=== PATIENT | male | born 1945 | race Caucasian/White ===

== ENCOUNTER 2018-10-10 21:54 | Inpatient (IN) ==
[2018-10-10 22:18] LABS: Basophils # 0.1 K/mm3 (0-0.2); Basophils % 0.4 % (0.1-2.0); Eosinophils # 0.1 K/mm3 (0.0-0.4); Eosinophils % 0.6 % (0.1-12.0); Hematocrit 46.7 % (42.0-52.0); Hemoglobin 15.2 g/dL (14.1-18.0); Lymphocytes # 0.5 K/mm3 (0.7-4.5); Lymphocytes % 2.8 % (10-50); Mean Corpuscular HGB Conc 32.6 g/dL (31.8-35.4); Mean Corpuscular Hemoglobin 31.3 pg (27.0-31.2); Mean Corpuscular Volume 96.1 fl (80-94); Mean Platelet Volume 7.7 fl (7.4-10.4); Monocytes # 0.6 K/mm3 (0.1-1.0); Monocytes % 3.1 % (1.7-9.3); Neutrophils # 16.6 K/mm3 (1.8-7.8); Neutrophils % 93.2 % (37.0-80.0); Platelet Count 310 K/mm3 (142-424); Red Blood Count 4.87 M/mm3 (4.60-6.20); Red Cell Distribution Width 14.1 % (11.5-17.5); White Blood Count 17.8 K/mm3 (4.8-10.8)
[2018-10-10 22:32] LABS: Alanine Aminotransferase 29 U/L (12-78); Albumin Level 3.9 gm/dL (3.4-5.0); Albumin/Globulin Ratio 0.7 (1.1-1.8); Alkaline Phosphatase 194 U/L (46-116); Amylase 85 U/L (25-115); Anion Gap 20.9 mEq/L (5-15); Aspartate Amino Transferase 19 U/L (15-37); Bilirubin,Total 0.3 mg/dL (0.2-1.0); Blood Urea Nitrogen 31 mg/dL (7-18); Calcium 9.3 mg/dL (8.5-10.1); Carbon Dioxide 20 mmol/L (21.0-32.0); Chloride 107 mmol/L (98-107); Globulin 5.5 gm/dl (1.3-3.2); Glucose 170 mg/dL (74-106); Lipase 37 u/L (73-393); Potassium 4.9 mmoL/L (3.5-5.1); Sodium 143 mmol/L (136-145); Total Protein,Serum 9.4 gm/dL (6.4-8.2)
[2018-10-10 22:36] LABS: Lymphocytes % 5 % (10-50); Neutrophils % 85 % (42-76); Total Cells Counted 100
[2018-10-10 22:37] LABS: RBC Morphology Normal
[2018-10-10 22:39] LABS: Microscopic, Urine URINE MICROSCOPIC (MICROSCOPIC)
[2018-10-10 22:41] LABS: Appearance,Urine SL CLOUDY (Clear); Bilirubin,Urine Negative (Negative); Blood, Urine TRACE-L (Negative); Color,Urine YELLOW (Yellow); Glucose,Urine (UA) Negative (Negative); Ketones,Urine Negative (Negative); Leukocyte Esterase,Urine Negative (Negative); PH,Urine 5.5 (5.0-8.5); Protein,Urine 1+ (Negative); Specific Gravity, Urine >= 1.030 (1.005-1.030); Urobilinogen,Urine 0.2 EU/dl (0.2)
[2018-10-10 22:49] LABS: Amorphous Sediment,Urine 4+ /lpf; WBC,Urine Occasional #/hpf (0-3)
--- NOTE | 2018-10-10 23:04 | Emergency Department Note ---
ED Disposition Clinical Impression: SBO (small bowel obstruction), Renal insufficiency Disposition: Admitted As Inpatient Condition on Discharge: Serious Instructions: DI for Acute Abdomen Referrals: Kathy Case MD [Primary Care Provider] - - Critical Care Critical Care Time: No Attestation: On 10/10/18, the high probability of a clinically significant, sudden or life threatening deterioration of the following system(s) required my full and direct attention, intervention and personal management. The time I documented below is in addition to time spent performing reported procedures but includes the following listed in this critical care notation. Medical Decision Making - Medical Records Medical records reviewed: Yes: I reviewed the patient's medical records. - [place] Inquiry Pt receiving controlled substance: No Vital Signs: 10/10/18 21:57 10/10/18 22:30 10/11/18 00:00 Temperature 98.1 F Temperature Source Oral Pulse Rate [Right Radial] 74 72 64 Respiratory Rate 12 16 18 Blood Pressure [Right Arm] 110/80 116/82 152/75 H Blood Pressure Mean [Right Arm] 90 93 100 Blood Pressure Source [Right Arm] Automatic Cuff Automatic Cuff Automatic Cuff Blood Pressure Position [Right Arm] Sitting Sitting Supine 02 Sat by Pulse Oximetry 98 98 98 Oxygen Delivery Method Room Air Room Air Room Air 10/11/18 00:30 Temperature Temperature Source Pulse Rate [Right Radial] 64 Respiratory Rate 18 Blood Pressure [Right Arm] 157/77 H Blood Pressure Mean [Right Arm] 103 Blood Pressure Source [Right Arm] Automatic Cuff Blood Pressure Position [Right Arm] Supine 02 Sat by Pulse Oximetry 98 Oxygen Delivery Method Room Air - Lab Data Lab results reviewed: Yes: I reviewed the patient's lab results. Lab Results 10/10/18 20:05: WBC 17.8 H, RBC 4.87, Hgb 15.2, Hct 46.7, MCV 96.1 H, MCH 31.3 H , MCHC 32.6, RDW 14.1, Plt Count 310, MPV 7.7, Neut % (Auto) 93.2 H, Lymph % (Auto) 2.8 L, [place] % (Auto) 3.1, Eos % (Auto) 0.6, Baso % (Auto) 0.4, Neut # (Auto) 16.6 H, Lymph # (Auto) 0.5 L, [place] # (Auto) 0.6, Eos # (Auto) 0.1, Baso # (Auto) 0.1, Total Counted 100, Neutrophils % (Manual) 85 H, Band Neutrophils % 10.0 H, Lymphocytes % (Manual) 5 L, Platelet Estimate Normal, RBC Morphology Normal 10/10/18 20:05: Sodium 143, Potassium 4.9, Chloride 107, Carbon Dioxide 20 L, Anion Gap 20.9 H, BUN 31 H, Creatinine 2.67 H, Estimated Creat Clear 22, Estimated GFR 24 L, Est GFR ( Amer) 29 L, Glucose 170 H, Calcium 9.3, Total Bilirubin 0.3, AST 19, ALT 29, Alkaline Phosphatase 194 H, Troponin I < 0.02, Total Protein 9.4 H, Albumin 3.9, Globulin 5.5 H, Albumin/Globulin Ratio 0.7 L, Amylase 85, Lipase 37 L 10/10/18 22:30: Urine Color Yellow, Urine Appearance Sl cloudy, Urine pH 5.5, Ur Specific [place] >= 1.030, Urine Protein 1+, Urine Glucose (UA) Negative, Urine Ketones Negative, Urine Blood Trace-l, Urine Nitrate Negative, Urine Bilirubin Negative, Urine Urobilinogen 0.2, Ur Leukocyte Esterase Negative, Urine RBC 3-5, Urine WBC Occasional, Ur Squamous Epith Cells 3-5, Amorphous Sediment 4+, Hyaline Casts 3-5 Result diagrams: 10/10/18 20:05 10/10/18 20:05 Orders (Tests/Meds): ED MEDICATIONS Discontinued Medications Generic Name Dose Route Start Last Admin Trade Name Freq PRN Reason Stop Dose Admin Diatrizoate Meglum/Diatrizoate Sod 30 ml 10/10/18 23:01 10/10/18 23:11 Gastrografin 66%-10% 30ml PO 10/10/18 23:02 Not Given ONCE ONE Diatrizoate Meglum/Diatrizoate Sod 15 ml 10/10/18 23:07 10/10/18 23:10 Gastrografin 66%-10% 30ml PO 10/10/18 23:08 15 ml ONCE ONE Administration Sodium Chloride 1,000 mls @ 999 mls/hr 10/10/18 22:00 10/10/18 22:02 Sod Chlor 0.9% 1000ml Bag IV 10/10/18 23:00 999 mls/hr .Q1H1M TRUONG Administration Ketorolac Tromethamine 30 mg 10/10/18 21:59 10/10/18 22:02 Toradol 30mg/Ml Vial IV 10/10/18 22:00 30 mg ONCE ONE Administration Morphine Sulfate 2 mg 10/10/18 23:07 10/10/18 23:11 Morphine 2mg/Ml Syringe IV 10/10/18 23:08 2 mg ONCE ONE Administration Ondansetron HCl 4 mg 10/10/18 21:59 10/10/18 22:02 Zofran 4mg/2ml Vial IV 10/10/18 22:00 4 mg ONCE ONE Administration Promethazine HCl 12.5 mg 10/10/18 23:07 10/10/18 23:11 Phenergan 25mg/Ml 1ml Vial IV 10/10/18 23:08 12.5 mg ONCE ONE Administration ORDERS Category Date Time Status CT abdomen pelvis wo con Stat Cat Scan 10/10/18 23:01 Taken XR chest AP Stat Exams 10/10/18 22:07 Taken Urinalysis and Microscopic Stat Lab 10/10/18 22:30 Ordered - Radiology Data #1 Image(s): Chest Image Reviewed: Yes I reviewed the patient's radiology image Preliminary Findings: Abnormal (copd) - CT Data CT Scan: Abdomen, Pelvis Time Received: 00:[address] Reviewed: Yes: I have viewed the radiologist's interpretation Preliminary Findings: Abnormal (sbo) - Physician Consults Physician Consulted: mago Reason -: Admission Nausea/Vomiting/Diarrhea HPI - General Chief complaint: Abdominal Pain Stated complaint: Abd pain Time Seen by Provider: 10/10/18 22:10 Mode of Arrival: Ambulatory Limitations: No Limitations Description of Symptoms (Recalled from ER Triage Doc. by RN): Pt reports central abdominal pain that is tender to the touch, n/v, and diarrhea that started earlier today. - History of Present Illness HPI Narrative: upper abd pain with vomiting which started today and has hx of bowel obst 2 yrs ago and had prev bowel surg many yrs ago - no blood in vomitus and no fever MD complaint: nausea, vomiting, abdominal pain Onset (ago): day(s) Associated Abdominal Pain: Yes Location of pain: epigastric Severity: moderate Quality: aching Context: history of abdominal surgery Associated symptoms: denies other symptoms - Related Data Home Medications Medication Instructions Recorded Confirmed Amlodipine Besylate 5 mg PO DAILY 10/10/18 10/10/18 Lipase/Protease/Amylase [[place] Dr 1 each PO ACHS 10/10/18 10/10/18 12,000 Units Capsule] Lisinopril/Hydrochlorothiazide 1 tab PO DAILY 10/10/18 10/10/18 [Lisinopril-Hctz 20-12.5 mg Tab] Loratadine/Pseudoephedrine 1 each PO DAILY 10/10/18 10/10/18 [Claritin-D 24 Hour Tablet] Trazodone HCl 150 mg PO HS 10/10/18 10/10/18 Allergies Allergy/AdvReac Type Severity Reaction Status Date / Time No Known Allergies Allergy Verified 10/10/18 22:03 [facility] History I have reviewed the patient's past medical history: Yes - Social History Alcohol Intake: never - Psychiatric History Expresses thoughts of harming self/others: None Suicide Plan Description: No Plan ROS Obtained: Yes All systems reviewed & no additional complaints - Constitutional Constitutional: Denies fever(s) - Eyes Eyes: Denies change in vision - ENT Ears, Nose, Mouth, and Throat: Denies sore throat - Cardiovascular Cardiovascular: Denies chest pain - Respiratory Respiratory: No cough - Gastrointestinal Gastrointestingal: Reports: as per HPI, abdominal pain, nausea, vomiting. Denies: diarrhea - Genitourinary Male Genitourinary: Denies hematuria - Musculoskeletal Musculoskeletal: Denies joint pain, Denies neck pain - Integumentary/Breasts Skin/Breast: Denies rash - Neurologic Neurologic: Denies abnormal speech, Denies seizure-like activity Physical Exam - General General appearance: alert, in no apparent distress - Head Head exam: normocephalic - Eye Eye exam: Present: PERRL, EOMI. Absent: scleral icterus - ENT ENT exam: Present: mucous membranes dry - Neck Neck exam: Present: trachea midline - Respiratory Respiratory exam: Present: normal lung sounds bilaterally. Absent: respiratory distress - Cardiovascular Cardiovascular exam: Present: regular rate, systolic murmur, +S4 - Abdominal Exam Abdominal exam: Present: soft, tenderness, diminished bowel sounds Abdominal tenderness: Present: epigastrium, moderate - Extremities Exam Extremities exam: Present: full ROM - Neurological Exam Neurological exam: Present: alert, oriented X3, CN II-XII intact - Psychiatric Psychiatric exam: Present: normal affect - Skin Skin exam: Absent: rash
[2018-10-11 05:56] LABS: Basophils # 0.1 K/mm3 (0-0.2); Basophils % 0.7 % (0.1-2.0); Eosinophils # 0.1 K/mm3 (0.0-0.4); Eosinophils % 0.8 % (0.1-12.0); Hematocrit 41.5 % (42.0-52.0); Lymphocytes # 0.9 K/mm3 (0.7-4.5); Lymphocytes % 7.4 % (10-50); Mean Corpuscular HGB Conc 32.1 g/dL (31.8-35.4); Mean Corpuscular Hemoglobin 30.9 pg (27.0-31.2); Mean Corpuscular Volume 96.2 fl (80-94); Mean Platelet Volume 8.5 fl (7.4-10.4); Monocytes # 0.8 K/mm3 (0.1-1.0); Monocytes % 6.2 % (1.7-9.3); Neutrophils # 10.2 K/mm3 (1.8-7.8); Platelet Count 256 K/mm3 (142-424); Red Blood Count 4.31 M/mm3 (4.60-6.20); Red Cell Distribution Width 14.1 % (11.5-17.5)
[2018-10-11 06:01] LABS: Hemoglobin 13.3 g/dL (14.1-18.0)
[2018-10-11 06:09] LABS: Anion Gap 16.7 mEq/L (5-15); Potassium 4.7 mmoL/L (3.5-5.1)
[2018-10-11 06:24] LABS: Calcium 8.3 mg/dL (8.5-10.1)
[2018-10-11 06:36] LABS: Lymphocytes % 19 % (10-50); Neutrophils % 76 % (42-76); RBC Morphology Normal; Total Cells Counted 100
--- NOTE | 2018-10-11 07:59 | History & Physical Report ---
*Admission Date: 10/10/18 *Chief complaint: Upper abdominal pain *History of present illness: 73-year-old white male with history of small bowel obstruction requiring lysis of adhesions several years ago as a consequence of intestinal surgery occurred in [place] where he had several inches of his bowel removed-who suddenly woke up yesterday morning with the symptoms of upper epigastric pain and vomiting. This did not improve with a variety of OTC remedies and water at home, he came to the emergency department where he was in significant pain and CT scan confirmed the finding of small bowel obstruction. He was admitted for IV fluids and surgical consultation. [facility] History I have reviewed the patient's past medical history: Yes Medical History: Reports:: Cancer (SKIN CANCER REMOVED LEFT ARM), Hypertension Denies:: Diabetes Mellitus Type 1, Diabetes Mellitus Type 2, MRSA Other Surgeries: Yes: Appendectomy, Cholecystectomy, Colon Resection Amputation: No Fractures: No - *Social History Educational Level: Attended High School Smoking Status: Current every day smoker Tobacco Type: cigarettes # Packs/Day (cigarettes): 1 Alcohol Intake: never Occupational Status: retired Housing: other Household Members: children - Psychiatric History Expresses thoughts of harming self/others: None Suicide Plan Description: No Plan *Family Hx:: Coronary Artery Disease Review of Systems - Review of Systems Review of systems:: pertinent systems reviewed and negative unless documented below - Constitutional Reports anorexia, Denies body ache(s), Denies chills, Denies fever(s) - Eyes Denies blurry vision, Denies change in vision - ENT Denies abnormal hearing, Denies bleeding gums, Denies change in voice - *Cardiovascular Denies chest pain, Denies chest pain at rest, Denies shortness of breath - *Respiratory Denies change in phlegm color, Denies chest congestion, Denies shortness of breath - *Gastrointestinal Reports abdominal pain, Reports belching, Reports bloating, Reports feeling full early, Reports vomiting, Denies coffee ground vomit, Denies difficulty swallowing, Denies incontinent of stools - *Genitourinary Denies difficulty urinating - *Musculoskeletal Denies abnormal walking, Denies joint pain, Denies decreased muscle mass - *Neurologic Denies abnormal speech, Denies seizure-like activity Meds Home Medications Medication Instructions Recorded Confirmed Type Amlodipine Besylate 5 mg PO DAILY 10/10/18 10/10/18 History Lipase/Protease/Amylase [[place] 1 each PO ACHS 10/10/18 10/10/18 History 12,000 Units Capsule] Lisinopril/Hydrochlorothiazide 1 tab PO DAILY 10/10/18 10/10/18 History [Lisinopril-Hctz 20-12.5 mg Tab] Loratadine/Pseudoephedrine 1 each PO DAILY 10/10/18 10/10/18 History [Claritin-D 24 Hour Tablet] Trazodone HCl 150 mg PO HS 10/10/18 10/10/18 History Allergies Allergy/AdvReac Type Severity Reaction Status Date / Time No Known Allergies Allergy Verified 10/10/18 22:03 Exam Vital signs and Labs for Last 24 Hours: Temp Pulse Resp BP Pulse Ox 99.4 F 67 17 122/65 100 10/11/18 03:47 10/11/18 03:47 10/11/18 03:47 10/11/18 03:47 10/11/18 03:47 Laboratory Results - last 24 hr 10/10/18 20:05: WBC 17.8 H, RBC 4.87, Hgb 15.2, Hct 46.7, MCV 96.1 H, MCH 31.3 H , MCHC 32.6, RDW 14.1, Plt Count 310, MPV 7.7, Neut % (Auto) 93.2 H, Lymph % (Auto) 2.8 L, [place] % (Auto) 3.1, Eos % (Auto) 0.6, Baso % (Auto) 0.4, Neut # (Auto) 16.6 H, Lymph # (Auto) 0.5 L, [place] # (Auto) 0.6, Eos # (Auto) 0.1, Baso # (Auto) 0.1, Total Counted 100, Neutrophils % (Manual) 85 H, Band Neutrophils % 10.0 H, Lymphocytes % (Manual) 5 L, Platelet Estimate Normal, RBC Morphology Normal 10/10/18 20:05: Sodium 143, Potassium 4.9, Chloride 107, Carbon Dioxide 20 L, Anion Gap 20.9 H, BUN 31 H, Creatinine 2.67 H, Estimated Creat Clear 22, Estimated GFR 24 L, Est GFR ( Amer) 29 L, Glucose 170 H, Calcium 9.3, Total Bilirubin 0.3, AST 19, ALT 29, Alkaline Phosphatase 194 H, Troponin I < 0.02, Total Protein 9.4 H, Albumin 3.9, Globulin 5.5 H, Albumin/Globulin Ratio 0.7 L, Amylase 85, Lipase 37 L 10/10/18 22:30: Urine Color Yellow, Urine Appearance Sl cloudy, Urine pH 5.5, Ur Specific [place] >= 1.030, Urine Protein 1+, Urine Glucose (UA) Negative, Urine Ketones Negative, Urine Blood Trace-l, Urine Nitrate Negative, Urine Bilirubin Negative, Urine Urobilinogen 0.2, Ur Leukocyte Esterase Negative, Urine RBC 3-5, Urine WBC Occasional, Ur Squamous Epith Cells 3-5, Amorphous Sediment 4+, Hyaline Casts 3-5 10/11/18 05:50: WBC 12.0 H D, RBC 4.31 L, Hgb 13.3 L D, Hct 41.5 L, MCV 96.2 H, MCH 30.9, MCHC 32.1, RDW 14.1, Plt Count 256, MPV 8.5, Neut % (Auto) 85.0 H, Lymph % (Auto) 7.4 L, [place] % (Auto) 6.2, Eos % (Auto) 0.8, Baso % (Auto) 0.7, Neut # (Auto) 10.2 H, Lymph # (Auto) 0.9, [place] # (Auto) 0.8, Eos # (Auto) 0.1, Baso # (Auto) 0.1, Total Counted 100, Neutrophils % (Manual) 76, Band Neutrophils % 5.0, Lymphocytes % (Manual) 19, Platelet Estimate Normal, RBC Morphology Normal 10/11/18 05:50: Sodium 144, Potassium 4.7, Chloride 111 H, Carbon Dioxide 21, Anion Gap 16.7 H, BUN 36 H, Creatinine 2.77 H, Estimated Creat Clear 20, Estimated GFR 23 L, Est GFR ( Amer) 28 L, Glucose 119 H D, Calcium 8.3 L D I & O for Last 24 hours: Intake & Output 10/08/18 10/09/18 10/10/18 10/11/18 11:59 11:59 11:59 11:59 Intake Total 405 / 405 Balance 405 / 405 Weight 126 lb 2 oz Narrative: Patient is pleasant, alert, oriented x3. Appears stated age and appears in general good health. Oropharynx clear. No JVD. No scleral icterus or jaundice. Lungs have good air movement and are clear. Heart rate regular with no murmurs. Abdomen is tender especially epigastric area throughout the upper half of the abdomen, no rebound, no masses palpable. Lower quadrants are less tender. No other clubbing or cyanosis. Neurologic exam intact. Assessment and Plan (1) Renal insufficiency Current visit: Yes Status: Acute Category: Medical Code(s): N28.9 - Disorder of kidney and ureter, unspecified Patient reports that he is never been told he has kidney dysfunction. Could represent acute kidney injury given his lack of p.o. intake. Hold nephrotoxic agents. Cautious IV fluids. Watch creatinine tomorrow morning. (2) SBO (small bowel obstruction) Current visit: Yes Status: Acute Category: Medical Code(s): K56.609 - U nspecified intestinal obstruction, unspecified as to partial versus complete obstruction History of adhesions requiring surgical intervention. Surgical consult this morning.
--- NOTE | 2018-10-11 10:34 | Consult Report ---
*Admission Date: 10/10/18 *Chief complaint: ABDOMINAL PAIN, VOMITING *History of present illness: Patient is a 73-year-old white in 1996 he had an unknown etiology for bowel obstruction and required surgery through a right paramedian incision in [place]. I had seen him a couple of years ago for a bowel obstruction. He did require exploratory laparotomy in June 2016 for bowel obstruction with freeing of intestinal adhesions. He did not require resection at that time. He had no additional issues consistent with bowel obstruction in the interim. He does state however that he does have some chronic constipation and hard stools. Yesterday morning he awoke with severe upper abdominal and epigastric pain. He had episodes of vomiting. He presented to the emergency department where he was seen and evaluated and had CT scan performed with contrast. This revealed findings consistent with bowel obstruction with transition point in the small bowel in the right upper quadrant with decompressed bowel distally. He was admitted for inpatient management. A surgical consultation was obtained. Patient states this morning he feels somewhat better. He has had some dry heaves. Review of Systems - Constitutional Reports anorexia, Reports weight loss - Eyes Denies change in vision - ENT Denies abnormal hearing - *Cardiovascular Denies chest pain - *Respiratory Denies shortness of breath - *Gastrointestinal Reports abdominal pain, Reports change in bowel habits, Reports constipation, Reports vomiting - *Genitourinary Denies difficulty urinating - *Musculoskeletal Denies tingling - *Neurologic Denies abnormal walking, Denies abnormal hearing, Denies abnormal speech, Denies seizure-like activity [facility] History Medical History: Reports:: Cancer (SKIN CANCER REMOVED LEFT ARM), Hypertension Denies:: Diabetes Mellitus Type 1, Diabetes Mellitus Type 2, MRSA Other Surgeries: Yes: Appendectomy, Cholecystectomy, Colon Resection Amputation: No Fractures: No - *Social History Educational Level: Attended High School Smoking Status: Current every day smoker Tobacco Type: cigarettes # Packs/Day (cigarettes): 1 Alcohol Intake: never Occupational Status: retired Housing: other Household Members: children - Psychiatric History Expresses thoughts of harming self/others: None Suicide Plan Description: No Plan *Family Hx:: Coronary Artery Disease Meds Home Medications Medication Instructions Recorded Confirmed Type Amlodipine Besylate 5 mg PO DAILY 10/10/18 10/10/18 History Lipase/Protease/Amylase [[place] Dr 1 each PO ACHS 10/10/18 10/10/18 History 12,000 Units Capsule] Lisinopril/Hydrochlorothiazide 1 tab PO DAILY 10/10/18 10/10/18 History [Lisinopril-Hctz 20-12.5 mg Tab] Loratadine/Pseudoephedrine 1 each PO DAILY 10/10/18 10/10/18 History [Claritin-D 24 Hour Tablet] Trazodone HCl 150 mg PO HS 10/10/18 10/10/18 History Allergies Allergy/AdvReac Type Severity Reaction Status Date / Time No Known Allergies Allergy Verified 10/10/18 22:03 Exam Vital signs and Labs for Last 24 Hours: Temp Pulse Resp BP Pulse Ox 97.7 F 68 17 110/77 98 10/11/18 07:59 10/11/18 08:00 10/11/18 08:00 10/11/18 07:59 10/11/18 08:00 Laboratory Results - last 24 hr 10/10/18 20:05: WBC 17.8 H, RBC 4.87, Hgb 15.2, Hct 46.7, MCV 96.1 H, MCH 31.3 H , MCHC 32.6, RDW 14.1, Plt Count 310, MPV 7.7, Neut % (Auto) 93.2 H, Lymph % (Auto) 2.8 L, [place] % (Auto) 3.1, Eos % (Auto) 0.6, Baso % (Auto) 0.4, Neut # (Auto) 16.6 H, Lymph # (Auto) 0.5 L, [place] # (Auto) 0.6, Eos # (Auto) 0.1, Baso # (Auto) 0.1, Total Counted 100, Neutrophils % (Manual) 85 H, Band Neutrophils % 10.0 H, Lymphocytes % (Manual) 5 L, Platelet Estimate Normal, RBC Morphology Normal 10/10/18 20:05: Sodium 143, Potassium 4.9, Chloride 107, Carbon Dioxide 20 L, Anion Gap 20.9 H, BUN 31 H, Creatinine 2.67 H, Estimated Creat Clear 22, Estimated GFR 24 L, Est GFR ( Amer) 29 L, Glucose 170 H, Calcium 9.3, Total Bilirubin 0.3, AST 19, ALT 29, Alkaline Phosphatase 194 H, Troponin I < 0.02, Total Protein 9.4 H, Albumin 3.9, Globulin 5.5 H, Albumin/Globulin Ratio 0.7 L, Amylase 85, Lipase 37 L 10/10/18 22:30: Urine Color Yellow, Urine Appearance Sl cloudy, Urine pH 5.5, Ur Specific [place] >= 1.030, Urine Protein 1+, Urine Glucose (UA) Negative, Urine Ketones Negative, Urine Blood Trace-l, Urine Nitrate Negative, Urine Bilirubin Negative, Urine Urobilinogen 0.2, Ur Leukocyte Esterase Negative, Urine RBC 3-5, Urine WBC Occasional, Ur Squamous Epith Cells 3-5, Amorphous Sediment 4+, Hyaline Casts 3-5 10/11/18 05:50: WBC 12.0 H D, RBC 4.31 L, Hgb 13.3 L D, Hct 41.5 L, MCV 96.2 H, MCH 30.9, MCHC 32.1, RDW 14.1, Plt Count 256, MPV 8.5, Neut % (Auto) 85.0 H, Lymph % (Auto) 7.4 L, [place] % (Auto) 6.2, Eos % (Auto) 0.8, Baso % (Auto) 0.7, Neut # (Auto) 10.2 H, Lymph # (Auto) 0.9, [place] # (Auto) 0.8, Eos # (Auto) 0.1, Baso # (Auto) 0.1, Total Counted 100, Neutrophils % (Manual) 76, Band Neutrophils % 5.0, Lymphocytes % (Manual) 19, Platelet Estimate Normal, RBC Morphology Normal 10/11/18 05:50: Sodium 144, Potassium 4.7, Chloride 111 H, Carbon Dioxide 21, Anion Gap 16.7 H, BUN 36 H, Creatinine 2.77 H, Estimated Creat Clear 20, Estimated GFR 23 L, Est GFR ( Amer) 28 L, Glucose 119 H D, Calcium 8.3 L D I & O for Last 24 hours: Intake & Output 10/08/18 10/09/18 10/10/18 10/11/18 11:59 11:59 11:59 11:59 Intake Total 405 / 405 Balance 405 / 405 Weight 126 lb 2 oz - *Routine HEENT Exam Head: Present: normocephalic Eye: Present: EOMI, PERRL ENT: Present: mucous membranes moist - *Routine Neck Exam Present: supple. Absent: lymphadenopathy - *Routine Respiratory Exam Present: CTA bilaterally - *Routine Cardiovascular Exam Present: RRR - *Routine Abdominal Exam Present: normoactive bowel sounds, surgical scars. Absent: tenderness - *Routine Extremities Exam Absent: cyanosis, clubbing, edema - *Routine Skin Exam Present: warm. Absent: rash - *Routine Neurological Exam Present: alert, oriented X3 - Detailed Eye Exam Eyelids: Left normal inspection Results - Labs 10/11/18 05:50 10/11/18 05:50 Laboratory Results - last 24 hr 10/10/18 20:05: WBC 17.8 H, RBC 4.87, Hgb 15.2, Hct 46.7, MCV 96.1 H, MCH 31.3 H , MCHC 32.6, RDW 14.1, Plt Count 310, MPV 7.7, Neut % (Auto) 93.2 H, Lymph % (Auto) 2.8 L, [place] % (Auto) 3.1, Eos % (Auto) 0.6, Baso % (Auto) 0.4, Neut # (Auto) 16.6 H, Lymph # (Auto) 0.5 L, [place] # (Auto) 0.6, Eos # (Auto) 0.1, Baso # (Auto) 0.1, Total Counted 100, Neutrophils % (Manual) 85 H, Band Neutrophils % 10.0 H, Lymphocytes % (Manual) 5 L, Platelet Estimate Normal, RBC Morphology Normal 10/10/18 20:05: Sodium 143, Potassium 4.9, Chloride 107, Carbon Dioxide 20 L, Anion Gap 20.9 H, BUN 31 H, Creatinine 2.67 H, Estimated Creat Clear 22, Estimated GFR 24 L, Est GFR ( Amer) 29 L, Glucose 170 H, Calcium 9.3, Total Bilirubin 0.3, AST 19, ALT 29, Alkaline Phosphatase 194 H, Troponin I < 0.02, Total Protein 9.4 H, Albumin 3.9, Globulin 5.5 H, Albumin/Globulin Ratio 0.7 L, Amylase 85, Lipase 37 L 10/10/18 22:30: Urine Color Yellow, Urine Appearance Sl cloudy, Urine pH 5.5, Ur Specific [place] >= 1.030, Urine Protein 1+, Urine Glucose (UA) Negative, Urine Ketones Negative, Urine Blood Trace-l, Urine Nitrate Negative, Urine Bilirubin Negative, Urine Urobilinogen 0.2, Ur Leukocyte Esterase Negative, Urine RBC 3-5, Urine WBC Occasional, Ur Squamous Epith Cells 3-5, Amorphous Sediment 4+, Hyaline Casts 3-5 10/11/18 05:50: WBC 12.0 H D, RBC 4.31 L, Hgb 13.3 L D, Hct 41.5 L, MCV 96.2 H, MCH 30.9, MCHC 32.1, RDW 14.1, Plt Count 256, MPV 8.5, Neut % (Auto) 85.0 H, Lymph % (Auto) 7.4 L, [place] % (Auto) 6.2, Eos % (Auto) 0.8, Baso % (Auto) 0.7, Neut # (Auto) 10.2 H, Lymph # (Auto) 0.9, [place] # (Auto) 0.8, Eos # (Auto) 0.1, Baso # (Auto) 0.1, Total Counted 100, Neutrophils % (Manual) 76, Band Neutrophils % 5.0, Lymphocytes % (Manual) 19, Platelet Estimate Normal, RBC Morphology Normal 10/11/18 05:50: Sodium 144, Potassium 4.7, Chloride 111 H, Carbon Dioxide 21, Anion Gap 16.7 H, BUN 36 H, Creatinine 2.77 H, Estimated Creat Clear 20, Estimated GFR 23 L, Est GFR ( Amer) 28 L, Glucose 119 H D, Calcium 8.3 L D Assessment and Plan (1) Renal insufficiency Current visit: Yes Status: Acute Category: Medical Code(s): N28.9 - Disorder of kidney and ureter, unspecified (2) SBO (small bowel obstruction) Current visit: Yes Status: Acute Category: Medical Code(s): K56.609 - Unspecified intestinal obstruction, unspecified as to partial versus complete obstruction - Assessment and plan all Dx Assessment and Plan for all problems:: Patient has findings consistent with small bowel obstruction. Plan for naso gastric tube placement. Attempt nonoperative management. I did explain to the patient he could require surgical intervention if symptoms remain refractory to nonoperative management with nasogastric decompression. Plan for serial abdominal exams and radiographs.
--- NOTE | 2018-10-11 10:37 | Pharmacy Consult Notes ---
[facility] Pharmacy VTE Monitoring - Patient Demographics Admission date: 10/11/18 Report Date: 10/11/18 Time: 10:37 Allergies/Adverse Reactions: Patient Allergies No Known Allergies Allergy (Verified 10/10/18 22:03) Height: 1.73 m Weight: 57.209 kg Patient Problems: Current Active Problems SBO (small bowel obstruction) (Acute) Renal insufficiency (Acute) - VTE Risk Labs: VTE Related Lab Results Hgb 13.3 g/dL (14.1-18.0) L D 10/11/18 05:50 Hct 41.5 % (42.0-52.0) L 10/11/18 05:50 Plt Count 256 K/mm3 (142-424) 10/11/18 05:50 BUN 36 mg/dL (7-18) H 10/11/18 05:50 Creatinine 2.77 mg/dL (0.70-1.30) H 10/11/18 05:50 Estimated Creat Clear 20 mL/min (50-200) 10/11/18 05:50 Was VTE Risk Assessment Performed: Yes VTE Score: 1 VTE Risk Level: Very Low Risk - Prophylaxis Types of VTE Prophylaxis: TEDS Knee High (SCARLETT HOSE ORDERED)
[2018-10-12 05:57] LABS: Basophils # 0.1 K/mm3 (0-0.2); Basophils % 0.9 % (0.1-2.0); Eosinophils # 0.1 K/mm3 (0.0-0.4); Eosinophils % 1.4 % (0.1-12.0); Hematocrit 43.6 % (42.0-52.0); Hemoglobin 13.6 g/dL (14.1-18.0); Lymphocytes # 0.6 K/mm3 (0.7-4.5); Mean Corpuscular HGB Conc 31.1 g/dL (31.8-35.4); Mean Corpuscular Hemoglobin 30.4 pg (27.0-31.2); Mean Corpuscular Volume 97.5 fl (80-94); Mean Platelet Volume 7.7 fl (7.4-10.4); Monocytes # 0.6 K/mm3 (0.1-1.0); Monocytes % 8.9 % (1.7-9.3); Neutrophils # 5.6 K/mm3 (1.8-7.8); Neutrophils % 79.8 % (37.0-80.0); Platelet Count 264 K/mm3 (142-424); Red Blood Count 4.48 M/mm3 (4.60-6.20); Red Cell Distribution Width 14.2 % (11.5-17.5); White Blood Count 7.1 K/mm3 (4.8-10.8)
[2018-10-12 06:13] LABS: Albumin/Globulin Ratio 0.7 (1.1-1.8); Anion Gap 16.3 mEq/L (5-15); Bilirubin,Total 0.8 mg/dL (0.2-1.0); Calcium 8.3 mg/dL (8.5-10.1); Globulin 4.3 gm/dl (1.3-3.2); Potassium 4.3 mmoL/L (3.5-5.1); Total Protein,Serum 7.3 gm/dL (6.4-8.2)
--- NOTE | 2018-10-12 07:48 | Progress Note ---
Internal Medicine - PN: Subj *Date: 10/12/18 *Time: 07:45 Interval history: Patient reports at least one episode of abdominal pain that required IV narcotic use. He denies flatus. NG tube remains in place. Exam Vital signs and Labs for Last 24 Hours: Temp Pulse Resp BP Pulse Ox 97.7 F 70 20 154/74 H 96 10/12/18 04:00 10/12/18 04:00 10/12/18 04:00 10/12/18 04:00 10/12/18 04:00 Laboratory Results - last 24 hr 10/12/18 05:22: WBC 7.1 D, RBC 4.48 L, Hgb 13.6 L, Hct 43.6, MCV 97.5 H, MCH 30.4, MCHC 31.1 L, RDW 14.2, Plt Count 264, MPV 7.7, Neut % (Auto) 79.8, Lymph % (Auto) 9.0 L, [place] % (Auto) 8.9, Eos % (Auto) 1.4, Baso % (Auto) 0.9, Neut # (Auto) 5.6, Lymph # (Auto) 0.6 L, [place] # (Auto) 0.6, Eos # (Auto) 0.1, Baso # (Auto) 0.1 10/12/18 05:22: Sodium 147 H, Potassium 4.3, Chloride 114 H, Carbon Dioxide 21, Anion Gap 16.3 H, BUN 38 H, Creatinine 2.58 H, Estimated Creat Clear 21, Estimated GFR 25 L, Est GFR ( Amer) 30 L, Glucose 114 H, Calcium 8.3 L, Total Bilirubin 0.8, AST 55 H D, ALT 64 D, Alkaline Phosphatase 323 H, Total Protein 7.3, Albumin 3.0 L D, Globulin 4.3 H, Albumin/Globulin Ratio 0.7 L I & O for Last 24 hours: Intake & Output 10/09/18 10/10/18 10/11/18 10/12/18 11:59 11:59 11:59 11:59 Intake Total 405 / 405 3858 / 3858 Output Total 2790 / 2790 Balance 405 / 405 1068 / 1068 Weight 126 lb 2 oz Narrative: Patient is awake and alert. NG tube in place. Lungs are clear. Heart has a regular rate and rhythm. Abdomen is soft with right sided periumbilical tenderness. Bowel sounds are hypoactive. Assessment and Plan (1) SBO (small bowel obstruction) Current visit: Yes Status: Acute Category: Medical Code(s): K56.609 - Unspecified intestinal obstruction, unspecified as to partial versus complete obstruction (2) Renal insufficiency Current visit: Yes Status: Acute Category: Medical Code(s): N28.9 - Disorder of kidney and ureter, unspecified (3) Body mass index (BMI) of 19 to 24 in adult Current visit: Yes Status: Acute Category: Medical (4) Pancreatic insufficiency Current visit: Yes Status: Acute Category: Medical Code(s): K86.89 - Other specified diseases of pancreas (5) Kidney disease, chronic, stage IV (GFR 15-29 ml/min) Current visit: Yes Status: Acute Category: Medical Code(s): N18.4 - Chronic kidney disease, stage 4 (severe) - Assessment and plan all Dx Assessment and Plan for all problems:: Patient had abdominal films done this morning. Await review of those and surgical opinion. Patient will be given amlodipine for hypertension.
--- NOTE | 2018-10-12 08:05 | Progress Note ---
Subjective Patient reports: no new complaints Narrative: Patient has still had occasional acute exacerbations of abdominal pain. Denies flatus. He has had significant nasogastric output of 1650 mL. Exam Vital signs and Labs for Last 24 Hours: Temp Pulse Resp BP Pulse Ox 98.1 F 66 18 166/88 H 99 10/12/18 07:47 10/12/18 07:47 10/12/18 07:47 10/12/18 07:47 10/12/18 07:47 Laboratory Results - last 24 hr 10/12/18 05:22: WBC 7.1 D, RBC 4.48 L, Hgb 13.6 L, Hct 43.6, MCV 97.5 H, MCH 30.4, MCHC 31.1 L, RDW 14.2, Plt Count 264, MPV 7.7, Neut % (Auto) 79.8, Lymph % (Auto) 9.0 L, [place] % (Auto) 8.9, Eos % (Auto) 1.4, Baso % (Auto) 0.9, Neut # (Auto) 5.6, Lymph # (Auto) 0.6 L, [place] # (Auto) 0.6, Eos # (Auto) 0.1, Baso # (Auto) 0.1 10/12/18 05:22: Sodium 147 H, Potassium 4.3, Chloride 114 H, Carbon Dioxide 21, Anion Gap 16.3 H, BUN 38 H, Creatinine 2.58 H, Estimated Creat Clear 21, Estimated GFR 25 L, Est GFR ( Amer) 30 L, Glucose 114 H, Calcium 8.3 L, Total Bilirubin 0.8, AST 55 H D, ALT 64 D, Alkaline Phosphatase 323 H, Total Protein 7.3, Albumin 3.0 L D, Globulin 4.3 H, Albumin/Globulin Ratio 0.7 L I & O for Last 24 hours: Intake & Output 10/09/18 10/10/18 10/11/18 10/12/18 11:59 11:59 11:59 11:59 Intake Total 405 / 405 3858 / 3858 Output Total 3090 / 3090 Balance 405 / 405 768 / 768 Weight 126 lb 2 oz - *Routine Abdominal Exam Present: soft, distended Comments: No appreciable bowel sounds. Progress Note: A&P (1) SBO (small bowel obstruction) Status: Acute Current Visit: Yes (2) Renal insufficiency Status: Acute Current Visit: Yes (3) Body mass index (BMI) of 19 to 24 in adult Status: Acute Current Visit: Yes (4) Pancreatic insufficiency Status: Acute Current Visit: Yes (5) Kidney disease, chronic, stage IV (GFR 15-29 ml/min) Status: Acute Current Visit: Yes Assessment and Plan for All Diagnoses:: Acute abdominal series reveals persistent air-fluid levels. Nasogastric tube high in the fundus. Will advance nasogastric tube. Plan to review radiographs with radiology. Patient may require surgical intervention.
--- NOTE | 2018-10-12 12:39 | Progress Note ---
[facility] Anesthesia Checklist - Patient Identification Patient Identification: Arm Band, Verbal (Name & ) - Structural Data Admitted From: Inpatient Planned Operative Procedure/s: Exploratory Laparotomy Consent for Planned Operative Procedure(s) Verified: Yes Verified Documents: Surgical Consent, History and Physical - NPO Status Verified Time NPO: 00:00 - Chart Verification Results Verified: CBC, BMP - Additional verifications Anesthesia Reactions: No - Airway Assessment C-Spine Mobility Assessed: Yes TMJ Mobility Assessed: Yes Dentition: Edentulous (Upper and lower denture) - Neurological Assessment Level of Consciousness: Awake Hx Seizures: No Numbness or tingling in extremities: No - Anesthesia Plan Anesthesia Risk discussed: Yes Anesthesia Plan: Verified ASA Class: II Anesthesia Type: General [facility] History I have reviewed the patient's past medical history: Yes Medical History: Reports:: Cancer (SKIN CANCER REMOVED LEFT ARM), Hypertension Denies:: Diabetes Mellitus Type 1, Diabetes Mellitus Type 2, MRSA Other Surgeries: Yes: Appendectomy, Cholecystectomy, Colon Resection Amputation: No Fractures: No - *Social History Educational Level: Attended High School Smoking Status: Current every day smoker Tobacco Type: cigarettes # Packs/Day (cigarettes): 1 Alcohol Intake: never Occupational Status: retired Housing: other Household Members: children - Psychiatric History Expresses thoughts of harming self/others: None Suicide Plan Description: No Plan *Family Hx:: Coronary Artery Disease
--- NOTE | 2018-10-12 16:10 | Operative Note ---
Date of procedure: 10/12/18 Pre-op Diagnosis:: Small bowel obstruction Post-op Diagnosis:: Same Procedure performed:: Laparotomy with freeing of intestinal obstruction, small bowel resection with primary anastomosis Surgeon:: Rocky Gan MD Sports Management Professor(s):: Kristian Carvajal MD Anesthesia: GETKathy Estimated blood loss (mL): 50 Clinical Note:: Patient is a 73-year-old white male. He had a previous history of bowel obstruction requiring apparent laparotomy in [place] in 1996. He presented with bowel obstruction in 2016 which was refractory to nonoperative management and he required exploratory laparotomy with freeing of bowel obstruction by adhesio lysis without resection. Patient had presented once again with significant abdominal pain, bloating, and vomiting. He underwent CT scan in the emergency department and this revealed findings of bowel obstruction. He had nasogastric tube placed. Overnight he had significant output without significant improvement clinically or radiographically. Plan was made for operative intervention. Operative findings:: Patient had extensive intra-abdominal adhesions. He had a loop of bowel which was somewhat twisted and densely adherent to the anterior abdomen creating a complete obstruction. This was resected ultimately. Operative note:: Consent was obtained patient was taken the operating room. He was placed in a supine position. General anesthesia was induced via endotracheal tube. His abdomen was prepped and draped in the standard surgical fashion. He had a Kat catheter placed prior to prepping and draping. Midline incision was made in his previous laparotomy scar. Careful meticulous dissection was carried down through the layers and ultimately the peritoneal cavity was entered. The incision was extended superiorly and inferiorly. He had markedly dilated loops of bowel. Prolonged dissection was carried out freeing intestinal adhesions. There was a loop of bowel densely adherent to the anterior abdomen near the umbilical area which was somewhat twisted creating a complete obstruction with decompressed bowel distally. Thorough prolonged adhesio lysis was carried out freeing the small bowel in its entirety. The enteric contents were "milked" retrograde to the stomach where it was suctioned free with nasogastric tube which was replaced and positioned intraoperatively. There were a couple of minor serosal tears which were sutured with 3-0 Surgilon seromuscular sutures. There were no enterotomies. The loop of bowel creating the obstruction was inspected. Decision was made to resect this due to the significant inflammatory response and adhesions. The bowel was divided proximal and distal to the af fected point with GI a linear cutting stapling device. The small bowel mesentery was sequentially clamped divided and ligated with Vicryl ties. A [id number], functional and an anastomosis was created with a ETHEL-75 stapling device. The small bowel enterotomy was closed with a TX60 B stapling device. 3 -0 Surgilon seromuscular suture was placed at the staple line angle and at the confluence of staple lines. The mesenteric defect was closed with a running 2-0 Vicryl suture. Enteric contents were returned to the normal anatomic position. There was good hemostasis. Peritoneal cavity was irrigated and aspirated until clear. Fascia was closed with a running #2 Novafil x2. Skin was closed with moody. Clean dry sterile dressings were applied. Condition: stable Disposition: PACU Specimens:: Small bowel Complications:: None immediately apparent
--- NOTE | 2018-10-12 16:18 | Progress Note ---
[facility] Anesthesia Record Part I Intake, IV Amount: 2,000 Estimated blood loss (mL): 50 Urine output (mL): 200 Blood Pressure: 161/97 SaO2: 97 Pulse Rate: 88 Respiratory Rate: 16 Temperature: 97.6 F Patient is:: Drowsy, Stable Stable to PACU at:: 16:10
--- NOTE | 2018-10-12 16:19 | Progress Note ---
[place] Anesthesia Record Part II Discharge Time: 16:40 Destination: 2nd floor PACU nurse assessment reviewed?: Yes Patient Condition:: Good Anesthesia Complications:: None
--- NOTE | 2018-10-13 06:39 | Progress Note ---
Subjective Patient reports: feels better Exam Vital signs and Labs for Last 24 Hours: Temp Pulse Resp BP Pulse Ox 98.8 F 62 16 148/72 H 94 L 10/13/18 00:00 10/13/18 06:00 10/13/18 00:00 10/13/18 06:00 10/13/18 06:00 Laboratory Results - last 24 hr 10/12/18 14:00: Urine Color Yellow, Urine Appearance Clear, Urine pH 5.5, Ur Specific [place] 1.025, Urine Protein Negative, Urine Glucose (UA) Negative, Urine Ketones Trace, Urine Blood 1+, Urine Nitrate Negative, Urine Bilirubin Negative, Urine Urobilinogen 0.2, Ur Leukocyte Esterase Negative, Urine RBC None, Urine WBC Occasional, Ur Squamous Epith Cells None, Urine Bacteria 1+ I & O for Last 24 hours: Intake & Output 10/10/18 10/11/18 10/12/18 10/13/18 11:59 11:59 11:59 11:59 Intake Total 405 / 405 3858 / 3858 3425 / 3425 Output Total 3090 / 3090 1750 / 1750 Balance 405 / 405 768 / 768 1675 / 1675 Weight 126 lb 2 oz 129 lb 6 oz - *Routine Abdominal Exam Present: soft, surgical scars Progress Note: A&P (1) SBO (small bowel obstruction) Status: Acute Current Visit: Yes (2) Renal insufficiency Status: Acute Current Visit: Yes (3) Body mass index (BMI) of 19 to 24 in adult Status: Acute Current Visit: Yes (4) Pancreatic insufficiency Status: Acute Current Visit: Yes (5) Kidney disease, chronic, stage IV (GFR 15-29 ml/min) Status: Acute Current Visit: Yes Assessment and Plan for All Diagnoses:: Check labs this morning. Keep NG. Continue lemus for now for monitoring of urine output.
[2018-10-13 07:11] LABS: Calcium 7.6 mg/dL (8.5-10.1)
--- NOTE | 2018-10-13 07:12 | Progress Note ---
Internal Medicine - PN: Subj *Date: 10/13/18 *Time: 07:10 Interval history: Patient has no complaints this morning other than soreness around his surgical incision. He actually feels better already today than he did during the day yesterday. He denies nausea. Exam Vital signs and Labs for Last 24 Hours: Temp Pulse Resp BP Pulse Ox 98.8 F 62 16 148/72 H 94 L 10/13/18 00:00 10/13/18 06:00 10/13/18 00:00 10/13/18 06:00 10/13/18 06:00 Laboratory Results - last 24 hr 10/12/18 14:00: Urine Color Yellow, Urine Appearance Clear, Urine pH 5.5, Ur Specific [place] 1.025, Urine Protein Negative, Urine Glucose (UA) Negative, Urine Ketones Trace, Urine Blood 1+, Urine Nitrate Negative, Urine Bilirubin Negative, Urine Urobilinogen 0.2, Ur Leukocyte Esterase Negative, Urine RBC None, Urine WBC Occasional, Ur Squamous Epith Cells None, Urine Bacteria 1+ I & O for Last 24 hours: Intake & Output 10/10/18 10/11/18 10/12/18 10/13/18 11:59 11:59 11:59 11:59 Intake Total 405 / 405 3858 / 3858 3425 / 3425 Output Total 3090 / 3090 1750 / 1750 Balance 405 / 405 768 / 768 1675 / 1675 Weight 126 lb 2 oz 129 lb 6 oz Narrative: He looks well. Heart has a regular rate and rhythm. Lungs are clear. Abdomen is soft with transmitted sounds from his NG tube is attached to suction Assessment and Plan (1) SBO (small bowel obstruction) Current visit: Yes Status: Acute Category: Medical Code(s): K56.609 - Unspecified intestinal obstruction, unspecified as to partial versus complete obstruction (2) Renal insufficiency Current visit: Yes Status: Acute Category: Medical Code(s): N28.9 - Disorder of kidney and ureter, unspecified (3) Body mass index (BMI) of 19 to 24 in adult Current visit: Yes Status: Acute Category: Medical (4) Pancreatic insufficiency Current visit: Yes Status: Acute Category: Medical Code(s): K86.89 - Other specified diseases of pancreas (5) Kidney disease, chronic, stage IV (GFR 15-29 ml/min) Current visit: Yes Status: Acute Category: Medical Code(s): N18.4 - Chronic kidney disease, stage 4 (severe) - Assessment and plan all Dx Assessment and Plan for all problems:: Postop management per Dr. Gan. Await morning labs
[2018-10-13 07:15] LABS: Basophils % 0.2 % (0.1-2.0); Eosinophils % 0.2 % (0.1-12.0); Hematocrit 41.1 % (42.0-52.0); Hemoglobin 12.8 g/dL (14.1-18.0); Lymphocytes # 0.9 K/mm3 (0.7-4.5); Lymphocytes % 10.1 % (10-50); Mean Corpuscular HGB Conc 31.1 g/dL (31.8-35.4); Mean Corpuscular Hemoglobin 30.4 pg (27.0-31.2); Mean Corpuscular Volume 97.6 fl (80-94); Mean Platelet Volume 8.1 fl (7.4-10.4); Monocytes # 0.8 K/mm3 (0.1-1.0); Neutrophils # 7.6 K/mm3 (1.8-7.8); Neutrophils % 81.6 % (37.0-80.0); Platelet Count 242 K/mm3 (142-424); Red Blood Count 4.21 M/mm3 (4.60-6.20); Red Cell Distribution Width 14.3 % (11.5-17.5); White Blood Count 9.4 K/mm3 (4.8-10.8)
--- NOTE | 2018-10-14 06:50 | Progress Note ---
Subjective Patient reports: no new complaints, pain is less Exam Vital signs and Labs for Last 24 Hours: Temp Pulse Resp BP Pulse Ox 97.7 F 89 22 114/73 99 10/14/18 04:30 10/14/18 06:00 10/14/18 06:00 10/14/18 06:00 10/14/18 06:00 Laboratory Results - last 24 hr 10/13/18 06:55: WBC 9.4 D, RBC 4.21 L, Hgb 12.8 L, Hct 41.1 L, MCV 97.6 H, MCH 30.4, MCHC 31.1 L, RDW 14.3, Plt Count 242, MPV 8.1, Neut % (Auto) 81.6 H, Lymph % (Auto) 10.1, [place] % (Auto) 8.0, Eos % (Auto) 0.2, Baso % (Auto) 0.2, Neut # ( Auto) 7.6, Lymph # (Auto) 0.9, [place] # (Auto) 0.8, Eos # (Auto) 0.0, Baso # (Auto) 0.0 10/13/18 06:55: Sodium 147 H, Potassium 4.0, Chloride 112 H, Carbon Dioxide 22, Anion Gap 17.0 H, BUN 34 H, Creatinine 2.31 H, Estimated Creat Clear 24, Estimated GFR 28 L, Est GFR ( Amer) 34 L, Glucose 108 H, Calcium 7.6 L I & O for Last 24 hours: Intake & Output 10/11/18 10/12/18 10/13/18 10/14/18 11:59 11:59 11:59 11:59 Intake Total 405 / 405 3858 / 3858 3425 / 3425 3155 / 3155 Output Total 3090 / 3090 1750 / 1750 5800 / 5800 Balance 405 / 405 768 / 768 1675 / 1675 -2645 / -2645 Weight 126 lb 2 oz 129 lb 6 oz 132 lb 4 oz - *Routine Abdominal Exam Present: soft Comments: No appreciable bowel sounds. Progress Note: A&P (1) SBO (small bowel obstruction) Status: Acute Current Visit: Yes (2) Renal insufficiency Status: Acute Current Visit: Yes (3) Body mass index (BMI) of 19 to 24 in adult Status: Acute Current Visit: Yes (4) Pancreatic insufficiency Status: Acute Current Visit: Yes (5) Kidney disease, chronic, stage IV (GFR 15-29 ml/min) Status: Acute Current Visit: Yes Assessment and Plan for All Diagnoses:: NIC Kat. Increase IV fluids for now.
--- NOTE | 2018-10-14 07:19 | Progress Note ---
Internal Medicine - PN: Subj *Date: 10/14/18 *Time: 07:17 Interval history: Patient developed an arrhythmia overnight interpreted as atrial flutter and he was placed on Cardizem drip. This occurred around 11 PM. Patient converted to sinus rhythm earlier in the morning. He denies any problems this morning. Patient denies chest pain or shortness of breath. His abdominal pain is controlled. He denies flatus Exam Vital signs and Labs for Last 24 Hours: Temp Pulse Resp BP Pulse Ox 97.7 F 89 22 114/73 99 10/14/18 04:30 10/14/18 06:00 10/14/18 06:00 10/14/18 06:00 10/14/18 06:00 Laboratory Results - last 24 hr 10/13/18 06:55: WBC 9.4 D, RBC 4.21 L, Hgb 12.8 L, Hct 41.1 L, MCV 97.6 H, MCH 30.4, MCHC 31.1 L, RDW 14.3, Plt Count 242, MPV 8.1, Neut % (Auto) 81.6 H, Lymph % (Auto) 10.1, [place] % (Auto) 8.0, Eos % (Auto) 0.2, Baso % (Auto) 0.2, Neut # (Auto) 7.6, Lymph # (Auto) 0.9, [place] # (Auto) 0.8, Eos # (Auto) 0.0, Baso # (Auto) 0.0 I & O for Last 24 hours: Intake & Output 10/11/18 10/12/18 10/13/18 10/14/18 11:59 11:59 11:59 11:59 Intake Total 405 / 405 3858 / 3858 3425 / 3425 3155 / 3155 Output Total 3090 / 3090 1750 / 1750 7300 / 7300 Balance 405 / 405 768 / 768 1675 / 1675 -4145 / -4145 Weight 126 lb 2 oz 129 lb 6 oz 132 lb 4 oz Narrative: Patient is sitting up in bed. He does not appear to be in any pain. Lungs are clear. Heart has a regular rate and rhythm. Abdomen is soft. Bowel sounds are absent. Extremities are warm to the touch and without edema Assessment and Plan (1) SBO (small bowel obstruction) Current visit: Yes Status: Acute Category: Medical Code(s): K56.609 - Unspecified intestinal obstruction, unspecified as to partial versus complete obstruction (2) Renal insufficiency Current visit: Yes Status: Acute Category: Medical Code(s): N28.9 - Disorder of kidney and ureter, unspecified (3) Body mass index (BMI) of 19 to 24 in adult Current visit: Yes Status: Acute Category: Medical (4) Pancreatic insufficiency Current visit: Yes Status: Acute Category: Medical Code(s): K86.89 - Other specified diseases of pancreas (5) Kidney disease, chronic, stage IV (GFR 15-29 ml/min) Current visit: Yes Status: Acute Category: Medical Code(s): N18.4 - Chronic kidney disease, stage 4 (severe) (6) Supraventricular tachycardia Current visit: Yes Status: Acute Category: Medical Code(s): I47.1 - Supraventricular tachycardia - Assessment and plan all Dx Assessment and Plan for all problems:: 1. Postop care per Dr. Gan 2. Transition to oral Cardizem. DC amlodipine. Check echocardiogram.
[2018-10-14 07:24] LABS: Basophils # 0.1 K/mm3 (0-0.2); Basophils % 0.5 % (0.1-2.0); Eosinophils # 0.1 K/mm3 (0.0-0.4); Eosinophils % 0.5 % (0.1-12.0); Hematocrit 44.2 % (42.0-52.0); Hemoglobin 13.8 g/dL (14.1-18.0); Lymphocytes # 1.4 K/mm3 (0.7-4.5); Lymphocytes % 9.7 % (10-50); Mean Corpuscular HGB Conc 31.3 g/dL (31.8-35.4); Mean Corpuscular Hemoglobin 30.4 pg (27.0-31.2); Mean Corpuscular Volume 97.3 fl (80-94); Mean Platelet Volume 8.3 fl (7.4-10.4); Monocytes # 0.9 K/mm3 (0.1-1.0); Monocytes % 6.4 % (1.7-9.3); Neutrophils # 12.1 K/mm3 (1.8-7.8); Neutrophils % 83.1 % (37.0-80.0); Platelet Count 239 K/mm3 (142-424); Red Blood Count 4.54 M/mm3 (4.60-6.20); Red Cell Distribution Width 14.2 % (11.5-17.5); White Blood Count 14.6 K/mm3 (4.8-10.8)
[2018-10-14 07:27] LABS: Calcium 8.3 mg/dL (8.5-10.1)
[2018-10-14 07:31] LABS: Anion Gap 20.5 mEq/L (5-15); Potassium 3.5 mmoL/L (3.5-5.1)
[2018-10-15 06:11] LABS: Basophils # 0.1 K/mm3 (0-0.2); Basophils % 0.5 % (0.1-2.0); Eosinophils # 0.2 K/mm3 (0.0-0.4); Eosinophils % 1.8 % (0.1-12.0); Hematocrit 37.4 % (42.0-52.0); Lymphocytes # 1.2 K/mm3 (0.7-4.5); Lymphocytes % 9.8 % (10-50); Mean Corpuscular HGB Conc 31.5 g/dL (31.8-35.4); Mean Corpuscular Hemoglobin 30.3 pg (27.0-31.2); Mean Platelet Volume 8.3 fl (7.4-10.4); Monocytes # 0.7 K/mm3 (0.1-1.0); Monocytes % 5.5 % (1.7-9.3); Neutrophils # 9.9 K/mm3 (1.8-7.8); Neutrophils % 82.4 % (37.0-80.0); Platelet Count 214 K/mm3 (142-424); Red Cell Distribution Width 14.1 % (11.5-17.5); White Blood Count 12.1 K/mm3 (4.8-10.8)
[2018-10-15 06:19] LABS: Hemoglobin 11.9 g/dL (14.1-18.0)
[2018-10-15 06:21] LABS: Calcium 8.3 mg/dL (8.5-10.1)
--- NOTE | 2018-10-15 06:45 | Progress Note ---
Subjective Patient reports: no new complaints (POD3), no flatus Exam Vital signs and Labs for Last 24 Hours: Temp Pulse Resp BP Pulse Ox 98.5 F 82 20 152/74 H 94 L 10/15/18 04:00 10/15/18 04:00 10/15/18 04:00 10/15/18 04:00 10/15/18 05:55 Laboratory Results - last 24 hr 10/14/18 06:50: WBC 14.6 H D, RBC 4.54 L, Hgb 13.8 L, Hct 44.2, MCV 97.3 H, MCH 30.4, MCHC 31.3 L, RDW 14.2, Plt Count 239, MPV 8.3, Neut % (Auto) 83.1 H, Lymph % (Auto) 9.7 L, [place] % (Auto) 6.4, Eos % (Auto) 0.5, Baso % (Auto) 0.5, Neut # (Auto) 12.1 H, Lymph # (Auto) 1.4, [place] # (Auto) 0.9, Eos # (Auto) 0.1, Baso # (Auto) 0.1 10/14/18 07:00: Sodium 145, Potassium 3.5, Chloride 106, Carbon Dioxide 22, Anion Gap 20.5 H, BUN 34 H, Creatinine 2.55 H, Estimated Creat Clear 23, Estimated GFR 25 L, Est GFR ( Amer) 30 L, Glucose 93, Calcium 8.3 L 10/15/18 05:40: WBC 12.1 H, RBC 3.90 L, Hgb 11.9 L D, Hct 37.4 L, MCV 96.0 H, MCH 30.3, MCHC 31.5 L, RDW 14.1, Plt Count 214, MPV 8.3, Neut % (Auto) 82.4 H, Lymph % (Auto) 9.8 L, [place] % (Auto) 5.5, Eos % (Auto) 1.8, Baso % (Auto) 0.5, Neut # (Auto) 9.9 H, Lymph # (Auto) 1.2, [place] # (Auto) 0.7, Eos # (Auto) 0.2, Baso # (Auto) 0.1 10/15/18 05:40: Sodium 145, Potassium 3.0 L, Chloride 105, Carbon Dioxide 26, Anion Gap 17.0 H, BUN 32 H, Creatinine 2.15 H, Estimated Creat Clear 27, Estimated GFR 30 L, Est GFR ( Amer) 37 L D, Glucose 92, Calcium 8.3 L I & O for Last 24 hours: Intake & Output 10/12/18 10/13/18 10/14/18 10/15/18 11:59 11:59 11:59 11:59 Intake Total 3858 / 3858 3425 / 3425 3166 / 3166 4090 / 4090 Output Total 3090 / 3090 1750 / 1750 8725 / 8725 3300 / 3300 Balance 768 / 768 1675 / 1675 -5559 / -5559 790 / 790 Weight 129 lb 6 oz 132 lb 4 oz - Constitutional no acute distress - *Routine Respiratory Exam Absent: respiratory distress - *Routine Cardiovascular Exam Present: RRR - *Routine Abdominal Exam Absent: distended Comments: Incision(s) clean, dry, and intact. No erythema. Progress Note: A&P (1) SBO (small bowel obstruction) Status: Acute Assessment and plan: stable POD3 s/p lysis of adhesions and partial small bowel resection Increase ambulation Await return of bowel function Continue nasogastric decompression for now Current Visit: Yes (2) Renal insufficiency Status: Acute Current Visit: Yes (3) Body mass index (BMI) of 19 to 24 in adult Status: Acute Current Visit: Yes (4) Pancreatic insufficiency Status: Acute Current Visit: Yes (5) Kidney disease, chronic, stage IV (GFR 15-29 ml/min) Status: Acute Current Visit: Yes (6) Supraventricular tachycardia Status: Acute Current Visit: Yes
--- NOTE | 2018-10-15 07:14 | Progress Note ---
Internal Medicine - PN: Subj *Date: 10/15/18 *Time: 07:13 Interval history: Patient denies pain. He admits to some mild abdominal distention and fullness. He denies flatus. He is urinating without difficulty. He has remained in sinus rhythm on telemetry Exam Vital signs and Labs for Last 24 Hours: Temp Pulse Resp BP Pulse Ox 98.5 F 82 20 152/74 H 94 L 10/15/18 04:00 10/15/18 04:00 10/15/18 04:00 10/15/18 04:00 10/15/18 05:55 Laboratory Results - last 24 hr 10/14/18 06:50: WBC 14.6 H D, RBC 4.54 L, Hgb 13.8 L, Hct 44.2, MCV 97.3 H, MCH 30.4, MCHC 31.3 L, RDW 14.2, Plt Count 239, MPV 8.3, Neut % (Auto) 83.1 H, Lymph % (Auto) 9.7 L, [place] % (Auto) 6.4, Eos % (Auto) 0.5, Baso % (Auto) 0.5, Neut # (Auto) 12.1 H, Lymph # (Auto) 1.4, [place] # (Auto) 0.9, Eos # (Auto) 0.1, Baso # (Auto) 0.1 10/14/18 07:00: Sodium 145, Potassium 3.5, Chloride 106, Carbon Dioxide 22, Anion Gap 20.5 H, BUN 34 H, Creatinine 2.55 H, Estimated Creat Clear 23, Estimated GFR 25 L, Est GFR ( Amer) 30 L, Glucose 93, Calcium 8.3 L 10/15/18 05:40: WBC 12.1 H, RBC 3.90 L, Hgb 11.9 L D, Hct 37.4 L, MCV 96.0 H, MCH 30.3, MCHC 31.5 L, RDW 14.1, Plt Count 214, MPV 8.3, Neut % (Auto) 82.4 H, Lymph % (Auto) 9.8 L, [place] % (Auto) 5.5, Eos % (Auto) 1.8, Baso % (Auto) 0.5, Neut # (Auto) 9.9 H, Lymph # (Auto) 1.2, [place] # (Auto) 0.7, Eos # (Auto) 0.2, Baso # (Auto) 0.1 10/15/18 05:40: Sodium 145, Potassium 3.0 L, Chloride 105, Carbon Dioxide 26, Anion Gap 17.0 H, BUN 32 H, Creatinine 2.15 H, Estimated Creat Clear 27, Estimated GFR 30 L, Est GFR ( Amer) 37 L D, Glucose 92, Calcium 8.3 L I & O for Last 24 hours: Intake & Output 10/12/18 10/13/18 10/14/18 10/15/18 11:59 11:59 11:59 11:59 Intake Total 3858 / 3858 3425 / 3425 3166 / 3166 4090 / 4090 Output Total 3090 / 3090 1750 / 1750 8725 / 8725 3300 / 3300 Balance 768 / 768 1675 / 1675 -5559 / -5559 790 / 790 Weight 129 lb 6 oz 132 lb 4 oz Narrative: Alert. NG is in place. Lungs are clear. Heart has a regular rate and rhythm. Abdomen is soft with some mild distention in the right lower quadrant. Bowel sounds are hypoactive Assessment and Plan (1) SBO (small bowel obstruction) Current visit: Yes Status: Acute Category: Medical Code(s): K56.609 - Unspecified intestinal obstruction, unspecified as to partial versus complete obstruction (2) Renal insufficiency Current visit: Yes Status: Acute Category: Medical Code(s): N28.9 - Disorder of kidney and ureter, unspecified (3) Body mass index (BMI) of 19 to 24 in adult Current visit: Yes Status: Acute Category: Medical (4) Pancreatic insufficiency Current visit: Yes Status: Acute Category: Medical Code(s): K86.89 - Other specified diseases of pancreas (5) Kidney disease, chronic, stage IV (GFR 15-29 ml/min) Current visit: Yes Status: Acute Category: Medical Code(s): N18.4 - Chronic kidney disease, stage 4 (severe) (6) Supraventricular tachycardia Current visit: Yes Status: Acute Category: Medical Code(s): I47.1 - Supraventricular tachycardia - Assessment and plan all Dx Assessment and Plan for all problems:: 1. DC telemetry 2. Ambulate today with assistance
[2018-10-16 06:18] LABS: Basophils # 0.1 K/mm3 (0-0.2); Basophils % 0.5 % (0.1-2.0); Eosinophils # 0.5 K/mm3 (0.0-0.4); Hematocrit 36.8 % (42.0-52.0); Hemoglobin 12.1 g/dL (14.1-18.0); Lymphocytes # 1.3 K/mm3 (0.7-4.5); Lymphocytes % 11.8 % (10-50); Mean Corpuscular HGB Conc 32.9 g/dL (31.8-35.4); Mean Corpuscular Hemoglobin 31.7 pg (27.0-31.2); Mean Corpuscular Volume 96.3 fl (80-94); Mean Platelet Volume 8.6 fl (7.4-10.4); Monocytes # 0.6 K/mm3 (0.1-1.0); Monocytes % 5.3 % (1.7-9.3); Neutrophils # 8.8 K/mm3 (1.8-7.8); Neutrophils % 78.4 % (37.0-80.0); Platelet Count 248 K/mm3 (142-424); Red Blood Count 3.82 M/mm3 (4.60-6.20); White Blood Count 11.2 K/mm3 (4.8-10.8)
[2018-10-16 06:21] LABS: Anion Gap 17.1 mEq/L (5-15); Calcium 8.1 mg/dL (8.5-10.1); Potassium 3.1 mmoL/L (3.5-5.1)
--- NOTE | 2018-10-16 07:20 | Progress Note ---
Internal Medicine - PN: Subj *Date: 10/16/18 *Time: 07:16 Interval history: Patient is resting comfortably in bed, tolerating ice chips, NG still in place, reports three BMs overnight. No pain. While sleeping patient had a wide complex ventricular tachycardia self limiting to normal sinus rhythm, vital signs remained stable. Exam Vital signs and Labs for Last 24 Hours: Temp Pulse Resp BP Pulse Ox 97.7 F 60 16 136/62 92 L 10/16/18 04:00 10/16/18 04:01 10/16/18 04:00 10/16/18 04:00 10/16/18 04:00 Laboratory Results - last 24 hr 10/16/18 05:58: WBC 11.2 H, RBC 3.82 L, Hgb 12.1 L, Hct 36.8 L, MCV 96.3 H, MCH 31.7 H, MCHC 32.9, RDW 14.0, Plt Count 248, MPV 8.6, Neut % (Auto) 78.4, Lymph % (Auto) 11.8, [place] % (Auto) 5.3, Eos % (Auto) 4.0, Baso % (Auto) 0.5, Neut # (Auto) 8.8 H, Lymph # (Auto) 1.3, [place] # (Auto) 0.6, Eos # (Auto) 0.5 H, Baso # (Auto) 0.1 10/16/18 05:58: Sodium 143, Potassium 3.1 L, Chloride 104, Carbon Dioxide 25, Anion Gap 17.1 H, BUN 26 H, Creatinine 1.76 H, Estimated Creat Clear 33, Estimated GFR 38 L, Est GFR ( Amer) 46 L D, Glucose 93, Calcium 8.1 L I & O for Last 24 hours: Intake & Output 10/13/18 10/14/18 10/15/18 10/16/18 23:59 23:59 23:59 23:59 Intake Total 3315 / 3315 3685 / 3685 3810 / 3810 1585 / 1585 Output Total 5500 / 5500 6275 / 6275 3100 / 3100 550 / 550 Balance -2185 / -2185 -2590 / -2590 710 / 710 1035 / 1035 Weight 129 lb 6 oz 132 lb 4 oz - Constitutional no acute distress, cooperative - *Routine HEENT Exam Head: Present: normocephalic - *Routine Respiratory Exam Present: CTA bilaterally - *Routine Cardiovascular Exam Present: RRR - *Routine Abdominal Exam Present: soft Comments: nondistended, nontender, absent bowel sounds - *Routine Extremities Exam Comments: no pedal edema - *Routine Skin Exam Present: intact - *Routine Neurological Exam Present: alert, oriented X3 - Routine Psychiatric Exam Present: normal affect Assessment and Plan (1) SBO (small bowel obstruction) Current visit: Yes Status: Acute Category: Medical Code(s): K56.609 - Unspecified intestinal obstruction, unspecified as to partial versus complete obstruction (2) Renal insufficiency Current visit: Yes Status: Acute Category: Medical Code(s): N28.9 - Disorder of kidney and ureter, unspecified (3) Body mass index (BMI) of 19 to 24 in adult Current visit: Yes Status: Acute Category: Medical (4) Pancreatic insufficiency Current visit: Yes Status: Acute Category: Medical Code(s): K86.89 - Other specified diseases of pancreas (5) Kidney disease, chronic, stage IV (GFR 15-29 ml/min) Current visit: Yes Status: Acute Category: Medical Code(s): N18.4 - Chronic kidney disease, stage 4 (severe) (6) Supraventricular tachycardia Current visit: Yes Status: Acute Category: Medical Code(s): I47.1 - Supr aventricular tachycardia - Assessment and plan all Dx Assessment and Plan for all problems:: Will consult cardiology today for tachycardia.
--- NOTE | 2018-10-16 07:56 | Progress Note ---
Subjective Patient reports: feels better Narrative: Patient states he had some bowel movements overnight. No significant pain. No nausea. Exam Vital signs and Labs for Last 24 Hours: Temp Pulse Resp BP Pulse Ox 97.7 F 60 16 136/62 92 L 10/16/18 04:00 10/16/18 04:01 10/16/18 04:00 10/16/18 04:00 10/16/18 07:40 Laboratory Results - last 24 hr 10/16/18 05:58: WBC 11.2 H, RBC 3.82 L, Hgb 12.1 L, Hct 36.8 L, MCV 96.3 H, MCH 31.7 H, MCHC 32.9, RDW 14.0, Plt Count 248, MPV 8.6, Neut % (Auto) 78.4, Lymph % (Auto) 11.8, [place] % (Auto) 5.3, Eos % (Auto) 4.0, Baso % (Auto) 0.5, Neut # (Auto) 8.8 H, Lymph # (Auto) 1.3, [place] # (Auto) 0.6, Eos # (Auto) 0.5 H, Baso # (Auto) 0.1 10/16/18 05:58: Sodium 143, Potassium 3.1 L, Chloride 104, Carbon Dioxide 25, Anion Gap 17.1 H, BUN 26 H, Creatinine 1.76 H, Estimated Creat Clear 33, Estimated GFR 38 L, Est GFR ( Amer) 46 L D, Glucose 93, Calcium 8.1 L 10/16/18 05:58: Magnesium 1.9 I & O for Last 24 hours: Intake & Output 10/13/18 10/14/18 10/15/18 10/16/18 11:59 11:59 11:59 11:59 Intake Total 3425 / 3425 3166 / 3166 4090 / 4090 3714 / 3714 Output Total 1750 / 1750 8725 / 8725 3300 / 3300 1850 / 1850 Balance 1675 / 1675 -5559 / -5559 790 / 790 1864 / 1864 Weight 129 lb 6 oz 132 lb 4 oz - *Routine Abdominal Exam Present: soft Comments: Hypoactive bowel sounds. Progress Note: A&P (1) SBO (small bowel obstruction) Status: Acute Current Visit: Yes (2) Renal insufficiency Status: Acute Current Visit: Yes (3) Body mass index (BMI) of 19 to 24 in adult Status: Acute Current Visit: Yes (4) Pancreatic insufficiency Status: Acute Current Visit: Yes (5) Kidney disease, chronic, stage IV (GFR 15-29 ml/min) Status: Acute Current Visit: Yes (6) Supraventricular tachycardia Status: Acute Current Visit: Yes Assessment and Plan for All Diagnoses:: DC NG tube. Continue just ice chips for now.
--- NOTE | 2018-10-16 08:57 | Progress Note ---
Internal Medicine - PN: Subj *Date: 10/16/18 *Time: 08:55 Exam Vital signs and Labs for Last 24 Hours: Temp Pulse Resp BP Pulse Ox 97.7 F 65 17 135/67 93 L 10/16/18 08:00 10/16/18 08:00 10/16/18 08:00 10/16/18 08:00 10/16/18 08:00 Laboratory Results - last 24 hr 10/16/18 05:58: WBC 11.2 H, RBC 3.82 L, Hgb 12.1 L, Hct 36.8 L, MCV 96.3 H, MCH 31.7 H, MCHC 32.9, RDW 14.0, Plt Count 248, MPV 8.6, Neut % (Auto) 78.4, Lymph % (Auto) 11.8, [place] % (Auto) 5.3, Eos % (Auto) 4.0, Baso % (Auto) 0.5, Neut # (Auto) 8.8 H, Lymph # (Auto) 1.3, [place] # (Auto) 0.6, Eos # (Auto) 0.5 H, Baso # (Auto) 0.1 10/16/18 05:58: Sodium 143, Potassium 3.1 L, Chloride 104, Carbon Dioxide 25, Anion Gap 17.1 H, BUN 26 H, Creatinine 1.76 H, Estimated Creat Clear 33, Estimated GFR 38 L, Est GFR ( Amer) 46 L D, Glucose 93, Calcium 8.1 L 10/16/18 05:58: Magnesium 1.9 I & O for Last 24 hours: Intake & Output 10/13/18 10/14/18 10/15/18 10/16/18 23:59 23:59 23:59 23:59 Intake Total 3315 / 3315 3685 / 3685 3810 / 3810 1585 / 1585 Output Total 5500 / 5500 6275 / 6275 3100 / 3100 850 / 850 Balance -2185 / -2185 -2590 / -2590 710 / 710 735 / 735 Weight 58.684 kg 59.988 kg Assessment and Plan (1) SBO (small bowel obstruction) Current visit: Yes Status: Acute Category: Medical Code(s): K56.609 - Unspecified intestinal obstruction, unspecified as to partial versus complete obstruction (2) Renal insufficiency Current visit: Yes Status: Acute Category: Medical Code(s): N28.9 - Disorder of kidney and ureter, unspecified (3) Body mass index (BMI) of 19 to 24 in adult Current visit: Yes Status: Acute Category: Medical (4) Pancreatic insufficiency Current visit: Yes Status: Acute Category: Medical Code(s): K86.89 - Other specified diseases of pancreas (5) Kidney disease, chronic, stage IV (GFR 15-29 ml/min) Current visit: Yes Status: Acute Category: Medical Code(s): N18.4 - Chronic kidney disease, stage 4 (severe) (6) Supraventricular tachycardia Current visit: Yes Status: Acute Category: Medical Code(s): I47.1 - Supraventricular tachycardia The patient's infection will respond to the chosen ABx?: Yes Is the patient receiving the right drug, dose, and route?: Yes Could a more targeted ABx be ordered?: No (WBC IMPROVING)
--- NOTE | 2018-10-16 09:56 | Cardiology Report ---
PROCEDURE: 2-D M-mode and color Doppler study INDICATIONS FOR THE TEST: Chest pain COPDX Heart Murmur Tobacco Smoking Palpitations Fatigue Syncope Edema HypertensionXDiabetes Mellitus Rheumatic Fever SOB ALVARADO Obesity Hyperlipidemia Family History HD Additional History NEW ONSET AF TDS PATIENT INFORMATION HEIGHT: 68 WEIGHT:132 GENDER: Male B/P:122/65 2-D/M-MODE INTERPRETATION: 2-D MEASUREMENTS OBSERVED VALUES IN CMS Right Ventricular Dimension (RVDd) 1.6 Interventricular Septum (Thickness)(IVsd) .9 Left Ventricular Internal Dimensions(LVIDd) 5.0 Left Ventricular Posterior Wall (Thickness)(LVPWd) .8 Aortic Root 3.4 Aortic Cusp Separation 1.5 Left Atrial Dimensions (LAD) 2.7 2D 1. Left atrium is normal size, left ventricle is normal size, mild concentric left ventricular hypertrophy, visually estimated ejection fraction 55% with no regional wall motion abnormality. 2. The right atrium and right ventricle are normal size and contractility. 3. The aortic valve is minimally thickened and fibrosed. 4. The mitral and tricuspid valvular grossly normal. 5. The pulmonic valve is poorly visualized. 6. No significant pericardial effusion noted. DOPPLER INTERROGATION: Doppler interrogation of the aortic, mitral and tricuspid valvular presence of mild mitral and tricuspid regurgitation, tricuspid regurgitation jet velocity is inadequate for calculation of the right ventricular systolic pressure, grade 1 diastolic dysfunction seen without tissue Doppler evidence of raised left atrial pressure. CONCLUSION: 1. Normal left ventricular size, mild concentric left ventricular hypertrophy, visually estimated ejection fraction 55% with no regional wall motion abnormality, grade 1 diastolic dysfunction seen without tissue Doppler evidence of raised left atrial pressure. 2. Mild mitral and tricuspid regurgitation 3. No significant pericardial effusion noted.
--- NOTE | 2018-10-16 12:06 | Consult Report ---
History of Present Illness Consult date: 10/16/18 Requesting physician: Yaya Avendano Chief complaint: SVT Additional Medical History:: 1. Recurrent tachycardia. (10/16/18) a. Questionable atrial fibrillation/flutter with a max heart rate of 179 bpm. b. No known history of SVT or atrial fibrillation. 2. Postop small bowel obstruction surgery (10/12/18) a. Third surgery on small bowel in the past previous years. 3. Essential hypertension. 4. Tobacco abuse. a. Smokes 1 pack/day and has for over 20 years. 5. Denies history of cardiac issues. 6. Significant family history of cardiac disease a. Father at the age of 88 with massive [place]. History of present illness: 73-year-old male admitted to [facility] for vomiting and diarrhea on 10/11/18. Patient was admitted for small bowel obstruction, in which he underwent small bowel surgery (10/12/18). Patient noted with abdominal dressing and NG in place. NG draining dark brown bile.. Reason for cardiac consult patient throughout the evening went into rapid heart rate. Questionable atrial fib/flutter versus SVT. Patient denies history of any cardiac issues. Patient denies chest pain, tightness or pressure. Patient denies shortness of breath. Patient does have a history of smoking 1 pack/day. Denies palpitations or dizziness. Patient states he is unaware his heart was even going fast. Patient stated he does have history of hypertension. Hypertension is controlled at this time. During the episode of rapid heart rate, patient was placed on diltiazem 180 mg daily for rate control.. Patient is in sinus rhythm with a heart rate of 70-89 bpm with no ectopy noted. Echocardiogram was performed revealed:(10/16/18) 1. Normal left ventricular size, mild concentric left ventricular hypertrophy, visually estimated ejection fraction 55% with no regional wall motion abnormality, grade 1 diastolic dysfunction seen without tissue Doppler evidence of raised left atrial pressure. 2. Mild mitral and tricuspid regurgitation 3. No significant pericardial effusion noted. Discussed case with Dr. Mathews. Recommend to continue to monitor for any heart arrhythmia or abnormality. Continue diltiazem 180 mg daily for heart rate control. Thank you for letting us participate in the cardiac care of your patient. [facility] History Medical History: Reports:: Cancer (SKIN CANCER REMOVED LEFT ARM), Hypertension Denies:: Diabetes Mellitus Type 1, Diabetes Mellitus Type 2, MRSA, Seizures Other Surgeries: Yes: Appendectomy, Cholecystectomy, Colon Resection Amputation: No Fractures: No - *Social History Educational Level: Attended High School Smoking Status: Current every day smoker Tobacco Type: cigarettes # Packs/Day (cigarettes): 1 Alcohol Intake: never Occupational Status: retired Housing: other Household Members: children - Psychiatric History Expresses thoughts of harming self/others: None Suicide Plan Description: No Plan *Family Hx:: Coronary Artery Disease Meds Home Medications Medication Instructions Recorded Confirmed Type Amlodipine Besylate 5 mg PO DAILY 10/10/18 10/10/18 History Lipase/Protease/Amylase [Creon Dr 1 each PO ACHS 10/10/18 10/10/18 History 12,000 Units Capsule] Lisinopril/Hydrochlorothiazide 1 tab PO DAILY 10/10/18 10/10/18 History [Lisinopril-Hctz 20-12.5 mg Tab] Loratadine/Pseudoephedrine 1 each PO DAILY 10/10/18 10/10/18 History [Claritin-D 24 Hour Tablet] Trazodone HCl 150 mg PO HS 10/10/18 10/10/18 History Allergies Allergy/AdvReac Type Severity Reaction Status Date / Time No Known Allergies Allergy Verified 10/10/18 22:03 Review of Systems - Review of Systems Review of systems:: pertinent systems reviewed and negative unless documented below - Constitutional Reports lack of energy, Reports weight loss - ENT Reports dry mouth, Denies abnormal hearing, Denies nosebleed Comments: NG in place. Draining dark brown bile. - *Cardiovascular Reports fast heart rate, Denies chest pain, Denies chest pain at rest, Denies shortness of breath, Denies shortness of breath with activity, Denies generalized swelling - *Respiratory Denies cough, Denies shortness of breath, Denies stridor, Denies wheezing - *Gastrointestinal Reports abdominal pain Comments: Abdominal dressing intact. - *Musculoskeletal Denies abnormal walking - Integumentary/Breasts Denies lesions - *Neurologic Denies abnormal walking, Denies abnormal hearing, Denies abnormal speech, Denies dizziness, Denies seizure-like activity, Denies tingling, Denies dizziness Exam Vital signs and Labs for Last 24 Hours: Temp Pulse Resp BP Pulse Ox 98.9 F 68 17 149/74 H 95 10/16/18 11:17 10/16/18 11:17 10/16/18 11:17 10/16/18 11:17 10/16/18 11:17 Laboratory Results - last 24 hr 10/16/18 05:58: WBC 11.2 H, RBC 3.82 L, Hgb 12.1 L, Hct 36.8 L, MCV 96.3 H, MCH 31.7 H, MCHC 32.9, RDW 14.0, Plt Count 248, MPV 8.6, Neut % (Auto) 78.4, Lymph % (Auto) 11.8, [place] % (Auto) 5.3, Eos % (Auto) 4.0, Baso % (Auto) 0.5, Neut # (Auto) 8.8 H, Lymph # (Auto) 1.3, [place] # (Auto) 0.6, Eos # (Auto) 0.5 H, Baso # (Auto) 0.1 10/16/18 05:58: Sodium 143, Potassium 3.1 L, Chloride 104, Carbon Dioxide 25, Anion Gap 17.1 H, BUN 26 H, Creatinine 1.76 H, Estimated Creat Clear 33, Estimated GFR 38 L, Est GFR ( Amer) 46 L D, Glucose 93, Calcium 8.1 L 10/16/18 05:58: Magnesium 1.9 I & O for Last 24 hours: Intake & Output 10/13/18 10/14/18 10/15/18 10/16/18 23:59 23:59 23:59 23:59 Intake Total 3315 / 3315 3685 / 3685 3810 / 3810 1585 / 1585 Output Total 5500 / 5500 6275 / 6275 3100 / 3100 850 / 850 Balance -2185 / -2185 -2590 / -2590 710 / 710 735 / 735 Weight 129 lb 6 oz 132 lb 4 oz - Constitutional mild distress, average body habitus, thin - *Routine HEENT Exam Head: Present: normocephalic - *Routine Neck Exam Present: supple, full ROM, normal carotid upstroke. Absent: JVD, carotid bruit - Routine Chest/Breast/Axilla Exam Chest wall: Absent: tenderness - *Routine Respiratory Exam Present: accessory muscle use, CTA bilaterally. Absent: wheezes, crackles, distant breath sounds - *Routine Cardiovascular Exam Present: RRR, Normal S1, Normal S2. Absent: murmur, gallop, rubs, bradycardia, tachycardia, irregularly irregular, JVD - *Routine Abdominal Exam Present: soft Comments: Abdominal dressings intact - *Routine Extremities Exam Present: full ROM, pulses intact, normal capillary refill. Absent: cyanosis, clubbing, edema - *Routine Skin Exam Present: intact, dry, warm - *Routine Neurological Exam Present: alert, oriented X3, CN II-XII intact, normal reflexes, moving all extremities - Routine Psychiatric Exam Present: normal affect Assessment and Plan (1) SBO (small bowel obstruction) Current visit: Yes Status: Acute Category: Medical Code(s): K56.609 - Unspecified intestinal obstruction, unspecified as to partial versus complete obstruction (2) Renal insufficiency Current visit: Yes Status: Acute Category: Medical Code(s): N28.9 - Disorder of kidney and ureter, unspecified (3) Body mass index (BMI) of 19 to 24 in adult Current visit: Yes Status: Acute Category: Medical (4) Pancreatic insufficiency Current visit: Yes Status: Acute Category: Medical Code(s): K86.89 - Other specified diseases of pancreas (5) Kidney disease, chronic, stage IV (GFR 15-29 ml/min) Current visit: Yes Status: Acute Category: Medical Code(s): N18.4 - Chronic kidney disease, stage 4 (severe) (6) Supraventricular tachycardia Current visit: Yes Status: Acute Category: Medical Code(s): I47.1 - Supraventricular tachycardia - Assessment and plan all Dx Assessment and Plan for all problems:: Plan 1. Obtain echocardiogram. 2. Continue diltiazem 180 mg daily for heart rate control. 3. Continue current medication regimen per PCP. 4. Recommend tobacco cessation. 5. Please notify cardiology of any cardiac arrhythmia or abnormalities.
[2018-10-17 06:23] LABS: Basophils # 0.1 K/mm3 (0-0.2); Basophils % 0.8 % (0.1-2.0); Eosinophils # 0.5 K/mm3 (0.0-0.4); Eosinophils % 4.9 % (0.1-12.0); Hematocrit 34.9 % (42.0-52.0); Hemoglobin 11.7 g/dL (14.1-18.0); Lymphocytes # 1.4 K/mm3 (0.7-4.5); Lymphocytes % 12.8 % (10-50); Mean Corpuscular HGB Conc 33.6 g/dL (31.8-35.4); Mean Corpuscular Hemoglobin 31.8 pg (27.0-31.2); Mean Corpuscular Volume 94.7 fl (80-94); Mean Platelet Volume 8.1 fl (7.4-10.4); Monocytes # 0.6 K/mm3 (0.1-1.0); Monocytes % 5.9 % (1.7-9.3); Neutrophils # 8.2 K/mm3 (1.8-7.8); Neutrophils % 75.7 % (37.0-80.0); Platelet Count 257 K/mm3 (142-424); Red Blood Count 3.68 M/mm3 (4.60-6.20); White Blood Count 10.8 K/mm3 (4.8-10.8)
--- NOTE | 2018-10-17 06:41 | Progress Note ---
Subjective Patient reports: feels better (Still having "some loose stools"), flatus, bowel movement Exam Vital signs and Labs for Last 24 Hours: Temp Pulse Resp BP Pulse Ox 98.7 F 67 19 148/67 H 92 L 10/17/18 04:00 10/17/18 04:00 10/17/18 04:00 10/17/18 04:00 10/17/18 04:00 Laboratory Results - last 24 hr 10/16/18 05:58: Magnesium 1.9 10/17/18 05:45: WBC 10.8, RBC 3.68 L, Hgb 11.7 L, Hct 34.9 L, MCV 94.7 H, MCH 31.8 H, MCHC 33.6, RDW 14.0, Plt Count 257, MPV 8.1, Neut % (Auto) 75.7, Lymph % (Auto) 12.8, [place] % (Auto) 5.9, Eos % (Auto) 4.9, Baso % (Auto) 0.8, Neut # (Auto) 8.2 H, Lymph # (Auto) 1.4, [place] # (Auto) 0.6, Eos # (Auto) 0.5 H, Baso # (Auto) 0.1 I & O for Last 24 hours: Intake & Output 10/14/18 10/15/18 10/16/18 10/17/18 11:59 11:59 11:59 11:59 Intake Total 3166 / 3166 4090 / 4090 3814 / 3814 7069 / 7069 Output Total 8725 / 8725 3300 / 3300 2150 / 2150 675 / 675 Balance -5559 / -5559 790 / 790 1664 / 1664 6394 / 6394 Weight 132 lb 4 oz - Constitutional no acute distress - *Routine Respiratory Exam Absent: respiratory distress - *Routine Abdominal Exam Present: soft Comments: Less distended. Incision clean, dry, and intact. No erythema. Progress Note: A&P (1) SBO (small bowel obstruction) Status: Acute Assessment and plan: Continuing to slowly improve status post lysis of adhesions with partial small bowel resection. Postoperative ileus slowly improving. Clear liquids cautiously Current Visit: Yes (2) Renal insufficiency Status: Acute Current Visit: Yes (3) Body mass index (BMI) of 19 to 24 in adult Status: Acute Current Visit: Yes (4) Pancreatic insufficiency Status: Acute Current Visit: Yes (5) Kidney disease, chronic, stage IV (GFR 15-29 ml/min) Status: Acute Current Visit: Yes (6) Supraventricular tachycardia Status: Acute Current Visit: Yes
[2018-10-17 06:44] LABS: Anion Gap 19.3 mEq/L (5-15); Calcium 8.1 mg/dL (8.5-10.1); Potassium 3.3 mmoL/L (3.5-5.1)
--- NOTE | 2018-10-17 07:03 | Progress Note ---
Internal Medicine - PN: Subj *Date: 10/17/18 *Time: 07:01 Interval history: Patient in no distress this morning. He tells me his days and nights are mixed up. He has been ambulating quite well. He has had multiple loose stools and flatus. He is urinating well. His diet has been advanced this morning. Patient was evaluated by cardiology yesterday without changes in medications. Overnight he did briefly enter a junctional rhythm. Patient was awake and remained asymptomatic Exam Vital signs and Labs for Last 24 Hours: Temp Pulse Resp BP Pulse Ox 98.7 F 67 19 148/67 H 92 L 10/17/18 04:00 10/17/18 04:00 10/17/18 04:00 10/17/18 04:00 10/17/18 04:00 Laboratory Results - last 24 hr 10/16/18 05:58: Magnesium 1.9 10/17/18 05:45: WBC 10.8, RBC 3.68 L, Hgb 11.7 L, Hct 34.9 L, MCV 94.7 H, MCH 31.8 H, MCHC 33.6, RDW 14.0, Plt Count 257, MPV 8.1, Neut % (Auto) 75.7, Lymph % (Auto) 12.8, Power % (Auto) 5.9, Eos % (Auto) 4.9, Baso % (Auto) 0.8, Neut # (Auto) 8.2 H, Lymph # (Auto) 1.4, Power # (Auto) 0.6, Eos # (Auto) 0.5 H, Baso # (Auto) 0.1 10/17/18 05:45: Sodium 145, Potassium 3.3 L, Chloride 104, Carbon Dioxide 25, Anion Gap 19.3 H, BUN 19 H D, Creatinine 1.58 H, Estimated Creat Clear 36, Estimated GFR 43 L, Est GFR ( Amer) 53 L, Glucose 89, Calcium 8.1 L I & O for Last 24 hours: Intake & Output 10/14/18 10/15/18 10/16/18 10/17/18 11:59 11:59 11:59 11:59 Intake Total 3166 / 3166 4090 / 4090 3814 / 3814 7069 / 7069 Output Total 8725 / 8725 3300 / 3300 2150 / 2150 675 / 675 Balance -5559 / -5559 790 / 790 1664 / 1664 6394 / 6394 Weight 132 lb 4 oz Narrative: He is awake and alert. Overall he looks like he is feeling better. Lungs are clear to auscultation. Heart has a regular rate and rhythm. Abdomen is soft with active bowel sounds Assessment and Plan (1) SBO (small bowel obstruction) Current visit: Yes Status: Acute Category: Medical Code(s): K56.609 - Unspecified intestinal obstruction, unspecified as to partial versus complete obstruction (2) Renal insufficiency Current visit: Yes Status: Acute Category: Medical Code(s): N28.9 - Disorder of kidney and ureter, unspecified (3) Body mass index (BMI) of 19 to 24 in adult Current visit: Yes Status: Acute Category: Medical (4) Pancreatic insufficiency Current visit: Yes Status: Acute Category: Medical Code(s): K86.89 - Other specified diseases of pancreas (5) Kidney disease, chronic, stage IV (GFR 15-29 ml/min) Current visit: Yes Status: Acute Category: Medical Code(s): N18.4 - Chronic kidney disease, stage 4 (severe) (6) Supraventricular tachycardia Current visit: Yes Status: Acute Category: Medical Code(s): I47.1 - Supraventricular tachycardia - Assessment and plan all Dx Assessment and Plan for all problems:: Patient is progressing well. I am going to add lisinopril 10 mg to his antihypertensive regimen. Patient will also have his potassium replaced intravenously.
--- NOTE | 2018-10-18 07:17 | Progress Note ---
Internal Medicine - PN: Subj *Date: 10/18/18 *Time: 07:15 Interval history: Patient has no complaints this morning. He did ambulate frequently yesterday. He did experience some "gas pains". Gas pains were relieved with some simethicone. He continues to have watery bowel movements. He denies any weakness with ambulating. He does experience some nausea with ambulating. He is currently on a liquid diet. He did not have any arrhythmias overnight Exam Vital signs and Labs for Last 24 Hours: Temp Pulse Resp BP Pulse Ox 100.1 F H 70 18 154/71 H 91 L 10/18/18 04:00 10/18/18 04:00 10/18/18 04:00 10/18/18 04:00 10/18/18 04:00 I & O for Last 24 hours: Intake & Output 10/15/18 10/16/18 10/17/18 10/18/18 11:59 11:59 11:59 11:59 Intake Total 4090 / 4090 3814 / 3814 7649 / 7649 480 / 480 Output Total 3300 / 3300 2150 / 2150 675 / 675 150 / 150 Balance 790 / 790 1664 / 1664 6974 / 6974 330 / 330 Narrative: He is awake and alert. Lungs are clear to auscultation. Heart has a regular rate and rhythm. Abdomen is soft with active bowel sounds. Extremities are without edema Assessment and Plan (1) SBO (small bowel obstruction) Current visit: Yes Status: Acute Category: Medical Code(s): K56.609 - Unspecified intestinal obstruction, unspecified as to partial versus complete obstruction (2) Renal insufficiency Current visit: Yes Status: Acute Category: Medical Code(s): N28.9 - Disorder of kidney and ureter, unspecified (3) Body mass index (BMI) of 19 to 24 in adult Current visit: Yes Status: Acute Category: Medical (4) Pancreatic insufficiency Current visit: Yes Status: Acute Category: Medical Code(s): K86.89 - Other specified diseases of pancreas (5) Kidney disease, chronic, stage IV (GFR 15-29 ml/min) Current visit: Yes Status: Acute Category: Medical Code(s): N18.4 - Chronic kidney disease, stage 4 (severe) (6) Supraventricular tachycardia Current visit: Yes Status: Acute Category: Medical Code(s): I47.1 - Supraventricular tachycardia - Assessment and plan all Dx Assessment and Plan for all problems:: I will going to advance to full liquids and restart the patient's Creon
[2018-10-18 07:41] LABS: Basophils # 0.1 K/mm3 (0-0.2); Basophils % 0.6 % (0.1-2.0); Eosinophils # 0.4 K/mm3 (0.0-0.4); Eosinophils % 3.3 % (0.1-12.0); Hematocrit 38.1 % (42.0-52.0); Hemoglobin 12.5 g/dL (14.1-18.0); Lymphocytes # 1.2 K/mm3 (0.7-4.5); Lymphocytes % 9.9 % (10-50); Mean Corpuscular HGB Conc 32.9 g/dL (31.8-35.4); Mean Corpuscular Hemoglobin 31.1 pg (27.0-31.2); Mean Corpuscular Volume 94.4 fl (80-94); Mean Platelet Volume 8.1 fl (7.4-10.4); Monocytes # 0.6 K/mm3 (0.1-1.0); Monocytes % 4.9 % (1.7-9.3); Neutrophils # 9.7 K/mm3 (1.8-7.8); Neutrophils % 81.3 % (37.0-80.0); Platelet Count 276 K/mm3 (142-424); Red Blood Count 4.03 M/mm3 (4.60-6.20)
[2018-10-18 07:46] LABS: Anion Gap 14.6 mEq/L (5-15); Calcium 8.2 mg/dL (8.5-10.1); Potassium 3.6 mmoL/L (3.5-5.1)
--- NOTE | 2018-10-18 09:01 | Progress Note ---
Subjective Patient reports: feels better, diarrhea (diarrhea is chronic.), other (he has been advanced to full liquids this AM) Exam Vital signs and Labs for Last 24 Hours: Temp Pulse Resp BP Pulse Ox 98.8 F 70 16 138/71 95 10/18/18 08:00 10/18/18 08:00 10/18/18 08:00 10/18/18 08:00 10/18/18 08:00 Laboratory Results - last 24 hr 10/18/18 07:30: Sodium 142, Potassium 3.6, Chloride 103, Carbon Dioxide 28, Anion Gap 14.6, BUN 11 D, Creatinine 1.60 H, Estimated Creat Clear 36, Estimated GFR 43 L, Est GFR ( Amer) 52 L, Glucose 109 H, Calcium 8.2 L 10/18/18 07:30: WBC 12.0 H, RBC 4.03 L, Hgb 12.5 L, Hct 38.1 L, MCV 94.4 H, MCH 31.1, MCHC 32.9, RDW 14.0, Plt Count 276, MPV 8.1, Neut % (Auto) 81.3 H, Lymph % (Auto) 9.9 L, [place] % (Auto) 4.9, Eos % (Auto) 3.3, Baso % (Auto) 0.6, Neut # (Auto) 9.7 H, Lymph # (Auto) 1.2, [place] # (Auto) 0.6, Eos # (Auto) 0.4, Baso # (Auto) 0.1 I & O for Last 24 hours: Intake & Output 10/15/18 10/16/18 10/17/18 10/18/18 11:59 11:59 11:59 11:59 Intake Total 4090 / 4090 3814 / 3814 7649 / 7649 3644 / 3644 Output Total 3300 / 3300 2150 / 2150 675 / 675 150 / 150 Balance 790 / 790 1664 / 1664 6974 / 6974 3494 / 3494 - Constitutional no acute distress - *Routine Respiratory Exam Absent: respiratory distress - *Routine Abdominal Exam Present: soft Comments: Incision clean, dry, and intact. No erythema. Progress Note: A&P (1) SBO (small bowel obstruction) Status: Acute Assessment and plan: Improving status post lysis of adhesions and partial small bowel resection. He has been restarted on his medication for chronic diarrhea. His diet has been slowly advanced to full liquids this morning. Current Visit: Yes (2) Renal insufficiency Status: Acute Current Visit: Yes (3) Body mass index (BMI) of 19 to 24 in adult Status: Acute Current Visit: Yes (4) Pancreatic insufficiency Status: Acute Current Visit: Yes (5) Kidney disease, chronic, stage IV (GFR 15-29 ml/min) Status: Acute Current Visit: Yes (6) Supraventricular tachycardia Status: Acute Current Visit: Yes
[2018-10-19 06:42] LABS: Basophils % 0.3 % (0.1-2.0); Eosinophils # 0.4 K/mm3 (0.0-0.4); Eosinophils % 2.9 % (0.1-12.0); Lymphocytes # 1.2 K/mm3 (0.7-4.5); Lymphocytes % 9.1 % (10-50); Mean Corpuscular HGB Conc 32.6 g/dL (31.8-35.4); Mean Corpuscular Hemoglobin 30.8 pg (27.0-31.2); Mean Corpuscular Volume 94.7 fl (80-94); Mean Platelet Volume 8.8 fl (7.4-10.4); Monocytes # 0.5 K/mm3 (0.1-1.0); Monocytes % 3.6 % (1.7-9.3); Neutrophils # 10.6 K/mm3 (1.8-7.8); Neutrophils % 84.1 % (37.0-80.0); Platelet Count 263 K/mm3 (142-424); Red Blood Count 3.46 M/mm3 (4.60-6.20); Red Cell Distribution Width 14.1 % (11.5-17.5); White Blood Count 12.6 K/mm3 (4.8-10.8)
[2018-10-19 06:52] LABS: Hemoglobin 10.8 g/dL (14.1-18.0)
[2018-10-19 06:53] LABS: Hematocrit 32.5 % (42.0-52.0)
[2018-10-19 06:56] LABS: Anion Gap 12.2 mEq/L (5-15); Calcium 7.5 mg/dL (8.5-10.1); Potassium 3.2 mmoL/L (3.5-5.1)
--- NOTE | 2018-10-19 07:11 | Discharge Summary ---
General - General Admission date:: 10/11/18 Discharge date: 10/19/18 HPI HPI: 73-year-old white male with history of small bowel obstruction requiring lysis of adhesions several years ago as a consequence of intestinal surgery occurred in [place] where he had several inches of his bowel removed-who suddenly woke up yesterday morning with the symptoms of upper epigastric pain and vomiting. This did not improve with a variety of OTC remedies and water at home, he came to the emergency department where he was in significant pain and CT scan confirmed the finding of small bowel obstruction. He was admitted for IV fluids and surgical consultation. Hospital Course Hospital Course: Patient was admitted and the following morning NG tube was placed for gastric decompression. Patient was kept n.p.o. Dr. Gan was consulted. Patient did not improve over the following 24 hours. On October 12 patient underwent Laparotomy with freeing of intestinal obstruction, small bowel resection with primary anastomosis. Once patient's postop ileus improved his diet was advanced, first to clears and then to full liquids. When patient was placed on full liquids his Creon which he takes for pancreatic insufficiency was restarted. Patient did have diarrhea which is chronic in nature. On October 19 he was discharged home and will follow-up in my office in 1 week and will need repeat BMP. He will follow-up with Dr. Gan per his instructions. Patient's postoperative course did include cardiac arrhythmia. Patient had a very brief run of a supraventricular tachycardia. This was controlled with Cardizem and his heart rate returned to sinus rhythm. A little less than 48 hours later patient had another run of tachycardia. Patient was hypokalemic and once electrolytes are in place episodes of arrhythmia ceased. Patient was switched from amlodipine to Cardizem during hospitalization and will continue Cardizem at discharge. Patient has chronic pancreatic insufficiency for which she takes Creon. This medication was held until 1 day prior to discharge when his diet was advanced. On presentation patient had acute on chronic renal failure. Admitting creatinine was around 2.5. Postoperatively patient's creatinine gradually came down to 1.6. This will be monitored as an outpatient. Objective Vital signs: Temp Pulse Resp BP Pulse Ox 98.7 F 77 18 142/72 H 93 L 10/19/18 04:00 10/19/18 04:00 10/19/18 04:00 10/19/18 04:00 10/19/18 04:00 Results Labs on day of discharge: Labs from last 24 hours 10/19/18 10/19/18 10/18/18 06:21 06:21 07:30 WBC 12.6 H 12.0 H RBC 3.46 L 4.03 L Hgb 10.8 L D 12.5 L Hct 32.5 L 38.1 L MCV 94.7 H 94.4 H MCH 30.8 31.1 MCHC 32.6 32.9 RDW 14.1 14.0 Plt Count 263 276 MPV 8.8 8.1 Neut % (Auto) 84.1 H 81.3 H Lymph % (Auto) 9.1 L 9.9 L Cecil % (Auto) 3.6 4.9 Eos % (Auto) 2.9 3.3 Baso % (Auto) 0.3 0.6 Neut # (Auto) 10.6 H 9.7 H Lymph # (Auto) 1.2 1.2 Cecil # (Auto) 0.5 0.6 Eos # (Auto) 0.4 0.4 Baso # (Auto) 0.0 0.1 Sodium 142 Potassium 3.2 L Chloride 105 Carbon Dioxide 28 Anion Gap 12.2 BUN 9 Creatinine 1.57 H Estimated Creat Clear 37 Estimated GFR 44 L Est GFR ( Amer) 53 L Glucose 103 Calcium 7.5 L 10/18/18 07:30 WBC RBC Hgb Hct MCV MCH MCHC RDW Plt Count MPV Neut % (Auto) Lymph % (Auto) [place] % (Auto) Eos % (Auto) Baso % (Auto) Neut # (Auto) Lymph # (Auto) [place] # (Auto) Eos # (Auto) Baso # (Auto) Sodium 142 Potassium 3.6 Chloride 103 Carbon Dioxide 28 Anion Gap 14.6 BUN 11 D Creatinine 1.60 H Estimated Creat Clear 36 Estimated GFR 43 L Est GFR ( Amer) 52 L Glucose 109 H Calcium 8.2 L DS: Diagnosis - Discharge Diagnosis (1) SBO (small bowel obstruction) Status: Acute (2) Renal insufficiency Status: Acute (3) Body mass index (BMI) of 19 to 24 in adult Status: Acute (4) Pancreatic insufficiency Status: Acute (5) Kidney disease, chronic, stage IV (GFR 15-29 ml/min) Status: Acute (6) Supraventricular tachycardia Status: Acute Discharge Plan - Patient Discharge Instructions ACTIVITY: Continue current activity DIET: continue same diet Patient Instructions: How to Use an Incentive Spirometer, Small Bowel Resection, Small Bowel Obstruction, Surgical Site Infection - Follow up Plan Follow up with: Rocky Gan MD [Staff Physician] - 10/26/18 Marissa Murguia APRN [Nurse Practitioner] - 10/26/18 11:00 am Disposition: Home, Self-Retirement Medications: Home Medications Medication Instructions Recorded Confirmed Type Amlodipine Besylate 5 mg PO DAILY 10/10/18 10/10/18 History Lipase/Protease/Amylase [Saida Rivera 1 each PO ACHS 10/10/18 10/10/18 History 12,000 Units Capsule] Lisinopril/Hydrochlorothiazide 1 tab PO DAILY 10/10/18 10/10/18 History [Lisinopril-Hctz 20-12.5 mg Tab] Loratadine/Pseudoephedrine 1 each PO DAILY 10/10/18 10/10/18 History [Claritin-D 24 Hour Tablet] Trazodone HCl 150 mg PO HS 10/10/18 10/10/18 History Prescriptions/Medication Reconciliation: New dilTIAZem HCl [Cardizem 180mg ER capsule] 180 mg PO DAILY #30 cap.er.24h Continue Trazodone HCl 150 mg PO HS Lisinopril/Hydrochlorothiazide [Lisinopril-Hctz 20-12.5 mg Tab] 1 tab PO DAILY Loratadine/Pseudoephedrine [Claritin-D 24 Hour Tablet] 1 each PO DAILY Lipase/Protease/Amylase [Saida Rivera 12,000 Units Capsule] 1 each PO ACHS Discontinued Amlodipine Besylate 5 mg PO DAILY
--- NOTE | 2018-10-19 07:14 | Progress Note ---
Internal Medicine - PN: Subj *Date: 10/19/18 *Time: 07:08 Interval history: 73 year old male sitting up in bed, tolerating soft diet without any nausea/vomiting, loose bowel movements but this is near patients baseline. Minimal pain. Greater than 48 hours without arrhythmia. Exam Vital signs and Labs for Last 24 Hours: Temp Pulse Resp BP Pulse Ox 98.7 F 77 18 142/72 H 93 L 10/19/18 04:00 10/19/18 04:00 10/19/18 04:00 10/19/18 04:00 10/19/18 04:00 Laboratory Results - last 24 hr 10/18/18 07:30: Sodium 142, Potassium 3.6, Chloride 103, Carbon Dioxide 28, Anion Gap 14.6, BUN 11 D, Creatinine 1.60 H, Estimated Creat Clear 36, Estimated GFR 43 L, Est GFR ( Amer) 52 L, Glucose 109 H, Calcium 8.2 L 10/18/18 07:30: WBC 12.0 H, RBC 4.03 L, Hgb 12.5 L, Hct 38.1 L, MCV 94.4 H, MCH 31.1, MCHC 32.9, RDW 14.0, Plt Count 276, MPV 8.1, Neut % (Auto) 81.3 H, Lymph % (Auto) 9.9 L, Becker % (Auto) 4.9, Eos % (Auto) 3.3, Baso % (Auto) 0.6, Neut # (Auto) 9.7 H, Lymph # (Auto) 1.2, Becker # (Auto) 0.6, Eos # (Auto) 0.4, Baso # (Auto) 0.1 10/19/18 06:21: WBC 12.6 H, RBC 3.46 L, Hgb 10.8 L D, Hct 32.5 L, MCV 94.7 H, MCH 30.8, MCHC 32.6, RDW 14.1, Plt Count 263, MPV 8.8, Neut % (Auto) 84.1 H, Lymph % (Auto) 9.1 L, Becker % (Auto) 3.6, Eos % (Auto) 2.9, Baso % (Auto) 0.3, Neut # (Auto) 10.6 H, Lymph # (Auto) 1.2, Becker # (Auto) 0.5, Eos # (Auto) 0.4, Baso # (Auto) 0.0 10/19/18 06:21: Sodium 142, Potassium 3.2 L, Chloride 105, Carbon Dioxide 28, Anion Gap 12.2, BUN 9, Creatinine 1.57 H, Estimated Creat Clear 37, Estimated GFR 44 L, Est GFR ( Amer) 53 L, Glucose 103, Calcium 7.5 L I & O for Last 24 hours: Intake & Output 10/16/18 10/17/18 10/18/18 10/19/18 23:59 23:59 23:59 23:59 Intake Total 1785 / 1785 8029 / 8029 5144 / 5144 120 / 120 Output Total 1150 / 1150 525 / 525 Balance 635 / 635 7504 / 7504 5144 / 5144 120 / 120 - Constitutional no acute distress - *Routine HEENT Exam Head: Present: normocephalic - *Routine Respiratory Exam Present: CTA bilaterally - *Routine Cardiovascular Exam Present: RRR - *Routine Abdominal Exam Present: soft, normoactive bowel sounds Comments: nondistended - *Routine Extremities Exam Comments: no LE swelling - *Routine Skin Exam Comments: mid abdominal incision well approximated with moody in place, open to air, no drainage or redness noted - *Routine Neurological Exam Present: alert, oriented X3 - Routine Psychiatric Exam Present: normal affect Assessment and Plan (1) SBO (small bowel obstruction) Current visit: Yes Status: Acute Category: Medical Code(s): K56.609 - Unspecified intestinal obstruction, unspecified as to partial versus complete obstruction (2) Renal insufficiency Current visit: Yes Status: Acute Category: Medical Code(s): N28.9 - Disorder of kidney and ureter, unspecified (3) Body mass index (BMI) of 19 to 24 in adult Current visit: Yes Status: Acute Category: Medical (4) Pancreatic insufficiency Current visit: Yes Status: Acute Category: Medical Code(s): K86.89 - Other specified diseases of pancreas (5) Kidney disease, chronic, stage IV (GFR 15-29 ml/min) Current visit: Yes Status: Acute Category: Medical Code(s): N18.4 - Chronic kidney disease, stage 4 (severe) (6) Supraventricular tachycardia Current visit: Yes Status: Acute Category: Medical Code(s): I47.1 - Supraventricular tachycardia - Assessment and plan all Dx Assessment and Plan for all problems:: Will be seen later today by surgeon in anticipation of discharge today.
--- NOTE | 2018-10-19 07:52 | Progress Note ---
Subjective Patient reports: feels better Exam Vital signs and Labs for Last 24 Hours: Temp Pulse Resp BP Pulse Ox 98.7 F 77 18 142/72 H 93 L 10/19/18 04:00 10/19/18 04:00 10/19/18 04:00 10/19/18 04:00 10/19/18 04:00 Laboratory Results - last 24 hr 10/19/18 06:21: WBC 12.6 H, RBC 3.46 L, Hgb 10.8 L D, Hct 32.5 L, MCV 94.7 H, MCH 30.8, MCHC 32.6, RDW 14.1, Plt Count 263, MPV 8.8, Neut % (Auto) 84.1 H, Lymph % (Auto) 9.1 L, [place] % (Auto) 3.6, Eos % (Auto) 2.9, Baso % (Auto) 0.3, Neut # (Auto) 10.6 H, Lymph # (Auto) 1.2, [place] # (Auto) 0.5, Eos # (Auto) 0.4, Baso # (Auto) 0.0 10/19/18 06:21: Sodium 142, Potassium 3.2 L, Chloride 105, Carbon Dioxide 28, Anion Gap 12.2, BUN 9, Creatinine 1.57 H, Estimated Creat Clear 37, Estimated GFR 44 L, Est GFR ( Amer) 53 L, Glucose 103, Calcium 7.5 L I & O for Last 24 hours: Intake & Output 10/16/18 10/17/18 10/18/18 10/19/18 11:59 11:59 11:59 11:59 Intake Total 3814 / 3814 7649 / 7649 3644 / 3644 2099 Output Total 2150 / 2150 675 / 675 150 / 150 Balance 1664 / 1664 6974 / 6974 3494 / 3494 2099 - *Routine Abdominal Exam Present: soft, surgical scars Progress Note: A&P (1) SBO (small bowel obstruction) Status: Acute Current Visit: Yes (2) Renal insufficiency Status: Acute Current Visit: Yes (3) Body mass index (BMI) of 19 to 24 in adult Status: Acute Current Visit: Yes (4) Pancreatic insufficiency Status: Acute Current Visit: Yes (5) Kidney disease, chronic, stage IV (GFR 15-29 ml/min) Status: Acute Current Visit: Yes (6) Supraventricular tachycardia Status: Acute Current Visit: Yes Assessment and Plan for All Diagnoses:: Okay for discharge home.
== END 2018-10-19 09:50 | disposition home or self-care (01) ==
LOC: ER 21:54 → 2ND 10-11 00:37
PROVIDERS: ADMIT Internal Medicine Adolescent Medicine; ATTEND Family Medicine

== ENCOUNTER → 2019-03-30 11:41 | Outpatient (CLI) | payer MEDICARE, SELFPAY ==
[2019-04-04 17:19] LABS: Pancreatic Elastase, Fecal <50 (>200)
== END ==
PROVIDERS: Visit Provider Colon & Rectal Surgery
DX: K91.2 Postsurgical malabsorption, not elsewhere classified (principal)
CPT/HCPCS: 82656

== ENCOUNTER → 2023-04-15 08:54 | Outpatient (POV) | payer MEDICARE, SELFPAY | PROVIDERS: Visit Provider Dermatology | DX: Z00.00 Encounter for general adult medical examination without abnormal findings (principal) ==

== ENCOUNTER 2024-02-17 15:39 | Outpatient (POV) | payer MEDICARE, SELFPAY | END 2024-02-17 23:59 | disposition home or self-care (01) | LOC: SC 15:40 | PROVIDERS: PCP Family Medicine; Visit Provider Dermatology | DX: Z00.00 Encounter for general adult medical examination without abnormal findings (principal) ==